=== PATIENT | female | born 1970 | race Caucasian/White ===

== ENCOUNTER 2018-06-07 20:29 | Emergency (ER) | payer OTHER ==
[~2018-06-07] VITALS: Ht 162.6 cm; Wt 108.9 kg
[~2018-06-07 20:29] MED LIST: ALBIPROI INH; ALBU90OI INH; ALBU90OI6 INH; ALBU90OI61 INH; AMOCLA875 PO; AMOX500 PO; ANTOXYBENA OT; ARIP10 PO; AZIT250 PO; Adipex-P37.5 MG PO; Ativan1 MG PO; BUPR150T2 PO; CIPR500 PO; CODGUAEL PO; CYCL10; CYCL10 PO; DEXT30SU PO; DIAZ10; DIAZ10 PO; DIAZ2; DIAZ5 PO; DIPATR PO; DIPH50 PO; DOCU100 PO; DOXY100 PO; ESOM20 PO; FAMO20 PO; FLUO20 PO; FLUSAL2505 IH; Flagyl500 MG PO; GUAI600T33 PO; HYDACE10B PO; HYDACE5 PO; HYDACE7.5; HYDACE7.5 PO; HYDGUAL120 PO; HYDHCL25 PO; HYDPAM25 PO; HYDPAM50; HYDPAM50 PO; HYDR1TAB94 PO; HYDRA50; HYDROXYZINE; IBUP600 PO; IBUP800 PO; LEVFLO500 PO; LEVO750 PO; LORA1 PO; LORA2 PO; MECL25 PO; METO10 PO; NAPR500; NAPR500 PO; NAPR550 PO; NEOCOLOTSU OT; Naprosyn500 MG PO; OMEP20ER PO; ONDA4 PO; ONDA4ODT MM; ONDA8ODT MM; OXYACE5T PO; Omeprazole20 M1; PANT20 PO; PERM5TC TOP; PERP4 PO; PERP8 PO; POTCHL20ER PO; PRED20 PO; PROACE100 PO; PROG100 PO; PROM25 PO; Phenergan Vc-C120 ML PO; Prednisone20 MG PO; Prilosec Otc20 MG PO; RANI150 PO; RXCYCL10 PO; RXDIPATR PO; RXHYDACE PO; RXLORA1 PO; RXNAPNA550 PO; RXONDA4ODT MM; RXOXYACE PO; SULTRIDS PO; VENL150ER PO; VENL25; VENL75; VENL75 PO; VENL75ER; VENL75ER PO; VENLAFAXINE 225 MG; Zithromax250 MG PO
== END 2018-06-07 21:38 | disposition left against medical advice (07) ==
LOC: ER 20:29
DX: Z53.21 Procedure and treatment not carried out due to patient leaving prior to being seen by health care provider (principal)

== ENCOUNTER → 2018-10-19 | Outpatient (CLI) | payer OTHER ==
[~2018-10-19] MED LIST changes: +ALBU2.5V5 NEB; +DULERA 200 MCG/13 GM INH; +LOSA25 PO; +METO25 PO; +MIRALAX17 GM PO; +NICO21TP TOP; +PROBIOTIC1 EACH PO; +Prozac40 MG PO; +Tylenol325 MG PO
[2018-10-19 13:50] LABS: Alanine Aminotransfer (ALT/SGP 39 U/L (12-78); Albumin, Blood 3.9 g/dL (3.4-5.0); Albumin/Globulin Ratio 0.9 (0.8-1.8); Alk Phos 117 U/L (40-126); Anion Gap 10 mmol/L (6-16); Aspartate Aminotrans (AST/SGOT 20 U/L (12-37); Bilirubin, Total 0.4 mg/dL (0.1-1.0); Blood Urea Nitrogen 17 mg/dL (8-24); Bun/Creatinine Ratio 19.1 (12.0-20.0); CO2, Blood 27 mmol/L (21-32); Calcium, Blood 9.3 mg/dL (8.5-10.1); Chloride, Blood 102 mmol/L (98-108); Creatinine, Blood 0.89 mg/dL (0.40-1.00); Globulin, Blood 4.3 g/dL (2.2-4.0); Glomerular Filtration Rate >60 (60-); Glucose, Blood 88 mg/dL (70-99); Potassium, Blood 3.8 mmol/L (3.5-5.5); Sodium, Blood 139 mmol/L (136-145); Total Protein, Blood 8.2 g/dL (6.4-8.2)
[2018-10-19 13:53] LABS: BASOPHILS ABSOLUTE AUTO 0.06 K/mm3 (0.00-0.23); BASOPHILS PERCENT AUTO 1 % (0-2); EOSINOPHILS ABSOLUTE AUTO 0.11 K/mm3 (0.00-0.68); EOSINOPHILS PERCENT AUTO 1 % (0-6); Hematocrit 37.9 % (33.0-51.0); Hemoglobin 12.5 g/dL (11.5-16.0); IMMATURE GRAN ABSOLUTE AUTO 0.08 K/mm3 (0.00-0.10); IMMATURE GRAN PERCENT AUTO 1 % (0-1); LYMPHOCYTES ABSOLUTE AUTO 2.35 K/mm3 (0.84-5.20); LYMPHOCYTES PERCENT AUTO 29 % (21-46); MONOCYTES ABSOLUTE AUTO 0.61 K/mm3 (0.16-1.47); MONOCYTES PERCENT AUTO 8 % (4-13); Mean Corpuscular HGB 28.3 pg (26.0-34.0); Mean Corpuscular Volume 86 fL (80-100); Mean Platelet Volume 10.1 fL (9.1-12.4); NEUTROPHILS ABSOLUTE AUTO 4.81 K/mm3 (1.96-9.15); NEUTROPHILS PERCENT AUTO 60 % (41-73); Platelet Count 315 K/mm3 (150-400); RDW Coefficient Variation 14.9 % (11.7-14.2); Red Blood Cell Count 4.41 M/mm3 (3.80-5.20); White Blood Cell Count 8.02 K/mm3 (4.00-11.30)
== END | disposition home or self-care (01) ==
LOC: LAB EV 13:26 → LAB SHORT 13:26
PROVIDERS: General Practice
DX: R09.1 Pleurisy (principal)
CPT/HCPCS: 80053; 85025; 85379

== ENCOUNTER 2018-10-27 13:27 | Observation (INO) | payer OTHER ==
[~2018-10-27] VITALS: Ht 162.6 cm; Wt 121.0 kg
[~2018-10-27 13:27] MED LIST changes: -ALBU2.5V5 NEB; -DULERA 200 MCG/13 GM INH; -LOSA25 PO; -METO25 PO; -MIRALAX17 GM PO; -NICO21TP TOP; -PROBIOTIC1 EACH PO; -Prozac40 MG PO; -Tylenol325 MG PO
[2018-10-27] MEDS ORDERED: Prozac40 MG PO (15:10)
[2018-10-27] MEDS ORDERED: VENL75ER PO (15:11)
[2018-10-27 16:10] LABS: Source, Urine Clean Catch
[2018-10-27 16:22] LABS: Appearance, Urine Clear (Clear); Bilirubin, Urine Neg (Neg); Blood, Urine Neg (Neg); Color, Urine Yellow (P-Yellow); Glucose Qualitative, Urine Neg (Neg); Ketones, Urine Neg (Neg); Leukocyte Esterase, Urine Neg (Neg); Nitrite, Urine Neg (Neg); Protein, Urine 1+ (Neg); Specific Gravity, Urine 1.015 (1.003-1.022); Urobilinogen, Urine NORM (Normal)
[2018-10-27 23:17] LABS: Adenovirus Not Detected (NOT DETECT); Bordetella pertussis Not Detected (NOT DETECT); Chlamydophila pneumoniae Not Detected (NOT DETECT); Coronavirus 229E Not Detected (NOT DETECT); Coronavirus HKU1 Not Detected (NOT DETECT); Coronavirus NL63 Not Detected (NOT DETECT); Coronavirus OC43 Not Detected (NOT DETECT); Human Metapneumovirus Not Detected (NOT DETECT); Human Rhinovirus/Enterovirus Not Detected (NOT DETECT); Influenza A/2009-H1 Not Detected (NOT DETECT); Influenza A/H1 Not Detected (NOT DETECT); Influenza A/H3 Not Detected (NOT DETECT); Influenza B Not Detected (NOT DETECT); Mycoplasma pneumoniae Not Detected (NOT DETECT); Parainfluenza Virus 1 Not Detected (NOT DETECT); Parainfluenza Virus 2 Not Detected (NOT DETECT); Parainfluenza Virus 3 Not Detected (NOT DETECT); Parainfluenza Virus 4 Not Detected (NOT DETECT); Respiratory Syncytial Virus Not Detected (NOT DETECT)
[2018-10-28 00:31] LABS: Influenza A Not Detected (NOT DETECT)
--- NOTE | 2018-10-28 03:22 | NUR ---
SHIFT SUMMARY 1954 RECEIVED PT TO 335 VIA W/C FROM ER. A&O, ABLE TO TX SELF TO BED. RECEIVED REPORT FROM SEBASTIAN LABOY. PT TO ER, SENT FROM [facility] FOR C/O COUGH AND SOB, AFTER FAILING OUTPT ABX TX. PER SEBASTIAN LBAOY, PT VERY AGGRESSIVE WITH STAFF IN ER. PT ADMITTED FOR COPD EXAC. HX OF SMOKING FOR 10 YRS. REFUTED COPD DX. REFUSED PREDNISONE IN ER. MORBIDLY OBESE WITH SOME HTN; BUT PT REPORTING THAT NEW. ENCOURAGED PT TO CONSIDER QUITING SMOKING. SPUTUM CX ORDERED AND PT AWARE, BUT HAS NOT HAD A PC OR BEEN COUGHING MUCH SINCE COMING TO . LUNGS T/O WITH INSP/EXP WHEEZES. BIOX WNL. CALLS APPROPRIATELY FOR ASSIST TO BTHRM AND RT TX'S NEEDED. DR ANDERSON NOTIFIED AFTER ADMISSION FOR HOME MEDICATIONS NOT ORDERED, PER PT REQUEST. PT'S DAUGHTER UP TO RM AFTER MN TO VISIT, WAKING PT. RT IN TO CK ON PT SEVERAL TIMES. NO ACUTE DISTRESS NOTED OR REPORTED. CALL LT IN REACH.
[2018-10-28 05:18] LABS: Hematocrit 32.7 % (33.0-51.0); Hemoglobin 10.7 g/dL (11.5-16.0); Mean Corpuscular HGB 28.1 pg (26.0-34.0); Mean Corpuscular HGB Conc 32.7 g/dL (31.5-36.5); Mean Corpuscular Volume 86 fL (80-100); Mean Platelet Volume 10.4 fL (9.1-12.4); Platelet Count 353 K/mm3 (150-400); RDW Coefficient Variation 14.8 % (11.7-14.2); RDW Standard Deviation 46.2 fL (35.1-46.3); Red Blood Cell Count 3.81 M/mm3 (3.80-5.20); White Blood Cell Count 20.65 K/mm3 (4.00-11.30)
[2018-10-28 05:47] LABS: Anion Gap 9 mmol/L (6-16); Blood Urea Nitrogen 33 mg/dL (8-24); Bun/Creatinine Ratio 40.2 (12.0-20.0); CO2, Blood 24 mmol/L (21-32); Calcium, Blood 8.4 mg/dL (8.5-10.1); Chloride, Blood 109 mmol/L (98-108); Creatinine, Blood 0.82 mg/dL (0.40-1.00); Glomerular Filtration Rate >60 (60-); Glucose, Blood 90 mg/dL (70-99); Potassium, Blood 3.7 mmol/L (3.5-5.5); Sodium, Blood 142 mmol/L (136-145)
--- NOTE | 2018-10-28 08:00 | NUR ---
PATIENT STS WANTS REVIEW OF HER LABS. RN GOES OVER THEM WITH PATIENT. PATIENT WANTS THEM COMPARED TO PRIOR AND WHEN PATIENT INFORMED THAT I DO NOT HAVE ANY PRIOR LABS STS HER WILL BRING THEM IN.
--- NOTE | 2018-10-28 08:45 | NUR ---
TALKED TO ABOUT ORDERING PATIENT PROZAC 80 MG P.O. OK TO ORDER.
--- NOTE | 2018-10-28 14:44 | NUR ---
TALKED TO ABOUT PATIENT WANTING CT CHEST TO CHECK FOR CHEMICAL INDUCED PNE. STS PATIENT HAD REQUESTED EARLIER AND THAT HE WANTS TO SEE PATIENT FIRST AND SHE MAY ORDER.
--- NOTE | 2018-10-28 15:11 | NUR ---
IN TO SEE PATIENT.
--- NOTE | 2018-10-28 18:31 | NUR ---
PATIENT ALERT AND ORIENTED. OUTSIDE W/S.O. X 2 TODAY W/STEADY GAIT. ANXIETY WITH REGARDS TO; BLD. PRESS, HEART RATE, DIFFERENT DIAGNOSIS'S, FLUID RETENTION, URINE OUTPUT. DR. KAUR IN TO SEE PATIENT AND RELATIVES AT THIS TIME. RN AND TIMBER SIZER OPERATOR IN ROOM MULTIPLE TIMES. HAVE REVIEWED ; LABS AND MEDS A FEW TIMES. TELE ON AND PER TECH 125 ST. IV SALINE LOCKED. WILL CONTINUE TO MONITOR.
--- NOTE | 2018-10-29 01:18 | NUR ---
pt stated that she was worried and needed newly presribed medication at start of shift, brought all appropriate medications when came to assess pt, discussed new medication, pt stated she was satisfied with what she was being given but declared that the dr had not done all that was promised. counsled her to discuss it with the dr in the am that there was still time for the dr to enter more orders, catered to various needs to get pt calmed down and resting quietly, family left, family member came up from [facility] during break and started requesting that aid supply a trapeze and egg crate, family then called the nurse and demanded those things without pt having asked for them, informed family that there was a protocol and that the cn would have to be involved in any reallocation of assets/resources, cn approved of both and tehy were placed on pt's bed, family came in and informed cn that pt was not being cared for when asked what was not being done listed no tylenol for fever, no egg crate and no trapeze. Still not satisfied even when shown that all three things had been done prior to his arrival, woke pt up and informed her that she was not being cared for. pt angrly argued that she had been fine and why had he woken her up. she then complained of a headache, seeing spots, n/v, fever (temp never over 100 degrees), demanded a new vitals machine because the battery was low on the one in her room, continued to check her bp frequently, started talking off topic on non related topics, RN asked charge nurse if it was appropriate to call a rr, cn agreed and the various staff members arrived, hospitalist was accused of not caring or being competent to dx pt due to her specialty, dr agreed to transfer pt to PCU so that she could receive more focused care, family agreed and started packing up belongings to move her down, pt declared she could not stand the light but that having her face covered caused her nausea, transfered with dry wash cloth in hand for pt cover face with if light bothered eyes, transfered to pcu without incident with assistance of cn
--- NOTE | 2018-10-29 03:22 | NUR ---
ASSUMED CARE PT ARRIVED TO UNIT APPROX. 0045 VIA BED. PT ABLE TO AMBULATE FROM ONE BED TO ANOTHER. PT ORIENTED TO ROOM, UNIT AND POLICIES. VITALS SIGNS STABLE. PT HAS MINIMAL EDEMA BILAT FEET. LUNG SOUNDS CLEAR IN TOP, DIM IN BASES. PT HEART RHYTHM SINUS TACHYCARDIA. UPON ARRIVAL TO UNIT PT HAD NAUSEA AND VOMITING. APPROX 50CC OF EMESIS WAS COLLECTED. UPON GETTING SITUATED IN BED PT REPORTED NAUSEA HAD RESOLVED. PT REPORTS PAIN AT THIS TIME PMD NOTIFIED AND ORDERED PRN PAIN MEDICATION WHICH WAS GIVEN PER EMAR. PT NAUSEA RESOLVED SHORTLY AFTER ARRIVED, ALTHOUGH RETURNED INTERMITTENTLY SINCE PRN NAUSEA MEDICATION GIVEN PER EMAR TO HELP WITH THIS. FAMILY AT BEDSIDE. EDUCATED AND REASSURED PT AND FAMILY, NEEDED. BED IN LOW POSITION, CALL LIGHT IN REACH AND PT DENIES ANY NEEDS AT THIS TIME.
[2018-10-29 05:30] LABS: BASOPHILS ABSOLUTE AUTO 0.07 K/mm3 (0.00-0.23); BASOPHILS PERCENT AUTO 0 % (0-2); EOSINOPHILS ABSOLUTE AUTO 0.01 K/mm3 (0.00-0.68); EOSINOPHILS PERCENT AUTO 0 % (0-6); Hematocrit 34.5 % (33.0-51.0); Hemoglobin 11.2 g/dL (11.5-16.0); IMMATURE GRAN ABSOLUTE AUTO 0.86 K/mm3 (0.00-0.10); IMMATURE GRAN PERCENT AUTO 5 % (0-1); LYMPHOCYTES ABSOLUTE AUTO 4.38 K/mm3 (0.84-5.20); LYMPHOCYTES PERCENT AUTO 23 % (21-46); MONOCYTES ABSOLUTE AUTO 1.12 K/mm3 (0.16-1.47); MONOCYTES PERCENT AUTO 6 % (4-13); Mean Corpuscular HGB 27.7 pg (26.0-34.0); Mean Corpuscular HGB Conc 32.5 g/dL (31.5-36.5); Mean Corpuscular Volume 85 fL (80-100); Mean Platelet Volume 10.3 fL (9.1-12.4); NEUTROPHILS ABSOLUTE AUTO 12.51 K/mm3 (1.96-9.15); NEUTROPHILS PERCENT AUTO 66 % (41-73); NRBC ABSOLUTE 0.02 K/mm3 (0.00-0.02); NRBC Auto 0.1 /100 WBC (0.0-0.2); Platelet Count 377 K/mm3 (150-400); RDW Coefficient Variation 14.8 % (11.7-14.2); RDW Standard Deviation 45.8 fL (35.1-46.3); Red Blood Cell Count 4.04 M/mm3 (3.80-5.20); White Blood Cell Count 18.95 K/mm3 (4.00-11.30)
[2018-10-29 05:51] LABS: Anion Gap 8 mmol/L (6-16); Blood Urea Nitrogen 21 mg/dL (8-24); Bun/Creatinine Ratio 28.3 (12.0-20.0); CO2, Blood 28 mmol/L (21-32); Calcium, Blood 8.9 mg/dL (8.5-10.1); Chloride, Blood 102 mmol/L (98-108); Creatinine, Blood 0.74 mg/dL (0.40-1.00); Glomerular Filtration Rate >60 (60-); Glucose, Blood 124 mg/dL (70-99); Potassium, Blood 3.8 mmol/L (3.5-5.5); Sodium, Blood 138 mmol/L (136-145)
--- NOTE | 2018-10-29 05:55 | NUR ---
SHIFT SUMMARY PT REMAINS A&OX4. AND DAUGHTERS AT BEDSIDE UPON ARRIVAL TO UNIT. DISCUSSED WITH FAMILY AND PT ABOUT PT CURRENT SITUATION, AND REASSURED THAT PT IS STABLE AND THAT WE WILL CONTINUE TO MONITOR PT CLOSELY. PRN PAIN MEDICATION AND PRN NAUSEA MEDICATION GIVEN PER EMAR. PT REPORTS THIS HELPING SOME. ASSISTED PT TO SITUATE AND GET COMFORTABLE, PT REPORTED BEING "EXTREMLY TIRED". IN HAVING CONVERSATION W/ PT, PT REPORTS HAVING QUIET THE HISTORY OF MENTAL ILLNESS INCLUDING ANXIETY, DEPRESSION AND "PTSD" LIKE SYMPTOMS. PT SAYS SHE IS AWARE SHE DOES NOT MANAGE THESE SYMPTOMS WELL AND STATES THAT SHE FELT THAT IT IS POSSIBLE THAT PART OF THE REASON FOR THE SOFTWARE CLERK WAS DUE TO INCREASED ANXIETY WHICH RESULTED IN WORSENING BREATHING, HEART RATE AND BLOOD PRESSURE. DISCUSSED WITH PT TECHNIQUES TO HELP MANAGE ANXIETY AND CALMING TECHNIQUES. PT AND FAMILY EXPRESSED CONCERNS FOR PT BLOOD PRESSURE AND HEART RATE AND REASSURED THAT STAFF IS MONITORING THIS. DAUGHTERS LEFT AND REMAINS AT BEDSIDE. PT ABLE TO GET SOME REST ONCE CONTROLLING NAUSEA, PAIN AND AFTER DAUGHTERS LEAVING. BED IN LOW POSITION, BED ALARM ON, CALL LIGHT IN REACH AND PT DENIES ANY NEEDS AT THIS TIME. WILL CONTINUE TO MONITOR UNTIL HANDOFF TO DAYSHIFT RN.
--- NOTE | 2018-10-29 08:16 | NUR ---
I have been called into the room 3 times this morning; The first time was for a new patient gown. The pt was diaphoretic, and she states she has been having sweats, reports that every night she has been waking up and has to change her nightgown because it is wet. I asked the pt if she still gets her period, and she states that it has stopped about 4 months ago, but states, "it's not because of that. I've been having high fevers and have been deathly ill for 3 weeks." Assured the pt that her temperature right now is normal. I was called into the room a second time because she was having "severe pain, all over, in my head, neck, and all over my body." The main complaint was her headache. I gave Toresemide to help bring down her slighly elevated blood pressure, which I suggested may be contributing to her headache. She is lying in bed, in a darkened room, with her at her side. She is now calling for medication for nausea, stating that the food is making her nauseated. She called me into the room also to give phone updates to her daughters. I explained that that would have to be done after morning care was given to patients, as the phone calls to family members were lower priority than patient care. She agreed with this and accepted my response.
--- NOTE | 2018-10-29 08:37 | NUR ---
Dr. Noriega is here to see the patient. The pt's came out of the room to tell me that the pt's headache is getting worse.
--- NOTE | 2018-10-29 09:24 | NUR ---
The pt is complaining that her headache is worse, now travelling down her neck and into her back. Declined ativan at this time. Tylenol given for pain. She c/o nausea, but had been given Zofran by abdias Garland RN. Gave meds with apple juice per pt request. Pt also stated that popscicles sounded good to her, so these were provided on ice for her to help alleviate her nausea.
--- NOTE | 2018-10-29 09:35 | NUR ---
The pt is calling again, states that her headache is worse. Tylenol has probably not had enough time to have any effect.
--- NOTE | 2018-10-29 11:17 | NUR ---
The pt called me into the room at 1045 to report that she was having worse headache. Her is at the bedside. She is lying in bed, on her right side, talking quite a lot. Overhead lights are on in the room, and she says that her headache is bad. She is requesting Fentanyl because "that is the only thing that helps me." Also states that she feels her blood pressure is high. Vital signs were taken, and blood pressure noted high; other vital signs were WNL. Medication given for anxiety and blood pressure at this time. The pt is asking about the results of the CT scan which was done yesterday. I explained that Dr. Wing who ordered the CT would be informing her of the results. The pt asked three times additionally what the results were, if I could tell her what they were, and how the CT looked. I explained again that Dr. Wing would be talking to her about the results. The pt then asked if the CT results were available for the doctor to read. I said that they were, but that the doctor would be discussing them with her, not the RN.
--- NOTE | 2018-10-29 12:36 | NUR ---
Blood pressure and pt condition rechecked at this time following administration of medications for anxiety and hypertension. She is lying in bed on her side, appears calm, non-anxious, and makes no mention of any pain or discomfort at this time. Her only complaint is that she does not feel like eating; but states that the 2 packages of saltine crackers did go down very well, and she would like some more at this time. Blood pressure rechecked and documented in electronic record. Her remains at the bedside. He said that he has been checking the pt's blood pressure because his daughters (presumably by telephone) wanted to know what the blood pressure was.
--- NOTE | 2018-10-29 15:10 | NUR ---
The pt was calling on her call light; requesting that her blood pressure be rechecked. Blood pressure was checked, and the pt reported that her headache was still persisting. Tylenol was given, as well as a warm blanket to her neck for relief. Pt's daughter asked when the last breathing treatment was given as "I heard 2 high pitched wheezes when I was feeding her tapioca pudding a little while ago." No active wheezing noted at this time. Encouraged the pt to use her incentive spirometer and cough once an hour to help expectorate secretions. The pt did so, and was incontinent of urine in the bed. The pt declined attends or pull-ups to prevent soiling of her linens. Diamond sat on the side of the bed to sit in the chair for bed linen change. She immediately c/o dizzyness and lay back down on the bed. LInen change was done with pt rolling side to side in the bed, after which she c/o severe headache and feeling feverish. Requested that her vital signs be again taken, although they had been verified just about 30 minutes prior. [facility]ation in [facility]. Afebrile. HOB elevated, cool compresses to her forehead and fan for relief of her feeling suddenly hot. Blood pressure was 151/95.
--- NOTE | 2018-10-29 15:54 | NUR ---
After receiving apresoline, tylenol and levaquin IVPB started, the pt had nausea, vomiting, c/o flushing and feeling like she couldn't breathe. Tylenol and levaquin the pt has received before without any adverse reaction, the family tells me. However, last night she recieved a number of medications, including apresoline, and the daughters both tell me that the patient had the same reaction which she just had now. Apresoline presumed to be the culprit. Medicated now for nausea/vomiting. She is resting on her left side, room darkened, at bedside, and no further nausea/vomiting.
--- NOTE | 2018-10-29 17:36 | NUR ---
The pt states that she is still feeling nauseated, and still having headache after the IV zofran. Emesis was pale olive green in color, about 300 cc this last time. Called ICU for sonosite-trained RN to place IV in large vein for phenergan order. Thept's current IV is 22g in the left hand. The pt's is at the bedside.
--- NOTE | 2018-10-29 20:30 | NUR ---
W/ DOOR SHUT AND CHANGE OF SHIFT REPORTING , NO CALL FOR STAFF INTO ROOM UNTIL NOW TO HAVE HELP W/ BSC.. NOW THERW IS NON STOP REPORTING, W/ ESCALATING VOICE AND REPORT OF ENTIRE DAY AND NO STAFF PERSON HAS ADDRESSED NEEDS AND THERE HAS BEEN MANY MEDS TRIED AND THERE HAS BEEN ONLY ADVERSE REACTIONS AND CONSTANT NAUSEA AND VOMITING W/ ALL MED ATTEMPTED , TO GIVE "RELIEF FROM THIS HORRIBLE ABREU , AND NOW IT IS SEVERE IN BACK AND IN BACK OF NECK.IT MUST BE FROM ALL THE COUGHING I DO AND I AM GETTING WORSE NO ONE IS HELPING ME. CALL MY DAUGHTERS . " PT YELLS TO . IS BEING VERY CALM AND TRYING TO CALM PT HE SAYS THE NURSE HAS TO REVIEW YOUR MEDS, AND TO GIVE THE NURSE TIME TO FIND OUT WHAT HAPPENED,..
--- NOTE | 2018-10-29 21:00 | NUR ---
COMPLETE ASSESSMENT AND ALLOWED TO EXPRESS CONCERNS AND CONCLUDED STAFF WILL TRY FLEXERIL AND ATIVAN ALONG W/ HER USUAL HS MED. PT WAS VERY ANGRY W/ THIS IDEA. REPORTS SHE WAS SO SICK TO HER STOMACH AND WAS VOMITING ..." DOESNT ANYONE GIVE YOU A GOOD REPORST ABOUT ME. ? " WHEN STAFF SAYS I WILL SAY YOU HAVE REFUSED THOSE MEDS , PT VERY ANGRY AND DOES NOT WANT THIS TO BE REPORTED LIKE THIS,..FENTENYL GIVEN AT THIS TIME AND VERY AGREEABLE TO THIS. WE REVIEWED THAT WHEN THE PHENERGAN IS DUE WE CAN GIVE THIS AND SHE CAN TRY THE PO MEDS. AND SHE DOES AGREE. NO ACUTE ISSUES NOTED. BP WITHIN PARAMETERS FOR NO PRN MED NEED. REFUSED TO USE I.S.
--- NOTE | 2018-10-29 22:00 | NUR ---
CONFIDENT IN HOW WELL PT HAS RESPONDED TO FENTENYL AND STATES SHE IS SLEEPING WELL AND HE WILL GO HOME.
[2018-10-30 05:25] LABS: BASOPHILS ABSOLUTE AUTO 0.07 K/mm3 (0.00-0.23); BASOPHILS PERCENT AUTO 0 % (0-2); EOSINOPHILS ABSOLUTE AUTO 0.02 K/mm3 (0.00-0.68); EOSINOPHILS PERCENT AUTO 0 % (0-6); Hematocrit 36.4 % (33.0-51.0); Hemoglobin 11.8 g/dL (11.5-16.0); IMMATURE GRAN ABSOLUTE AUTO 0.53 K/mm3 (0.00-0.10); IMMATURE GRAN PERCENT AUTO 3 % (0-1); LYMPHOCYTES ABSOLUTE AUTO 4.63 K/mm3 (0.84-5.20); LYMPHOCYTES PERCENT AUTO 27 % (21-46); MONOCYTES ABSOLUTE AUTO 1.18 K/mm3 (0.16-1.47); MONOCYTES PERCENT AUTO 7 % (4-13); Mean Corpuscular HGB 27.5 pg (26.0-34.0); Mean Corpuscular HGB Conc 32.4 g/dL (31.5-36.5); Mean Corpuscular Volume 85 fL (80-100); Mean Platelet Volume 10.3 fL (9.1-12.4); NEUTROPHILS ABSOLUTE AUTO 11.07 K/mm3 (1.96-9.15); NEUTROPHILS PERCENT AUTO 63 % (41-73); Platelet Count 406 K/mm3 (150-400); RDW Standard Deviation 46.3 fL (35.1-46.3); Red Blood Cell Count 4.29 M/mm3 (3.80-5.20)
--- NOTE | 2018-10-30 06:52 | NUR ---
SUMMARY. AWAKENED FOR VS OR LAB AND REPORTS VERY SEVERE SHARP PAIN AT BASE OF SKULL AT BACK OF NECK .. REPORT SAME ALL NOC W/ GOOD RELIEF W/ FENTENYL AND ADDITIONAL PAIN IS WHOLE BACK FROM COUGHING AND EXTREME FRONTAL ABREU. PHENERGAN AND FENTENYL GIVEN WHEN DUE SHE IS AWARE IT IS Q 4 HR. AND REFUSES ALL PO MEDS DUE TO UPSET STOMACH.
--- NOTE | 2018-10-30 11:18 | NUR ---
8038 In response to the pt's and pt's 's questions, I explained the plan of care today with regard to pain medication and antinausea meds. When I said that the Fentanyl was no longer available for pain relief, but other meds would be used, the patient became extremely angry, shouting obscenities and ordering me outside of the room. Her was present in the room at the time, as well as Martha Bond, the respiratory therapist.
--- NOTE | 2018-10-30 11:21 | NUR ---
7340 After leaving the pt's room an hour prior, I was in patient care with acutely ill patients for an hour. During that time, the pt used her call light and her to ask for her morning medications at least 4 times. I explained to her who approached me outside of another patient's room that I was in care with other patients, and when I was able to I would return to her room. She was cooperative with her care, complained that she had to wait so long for her medications. Expressed anxiety and fear about her medical condition, her IV site, her blood pressure, and her lung sounds. Asked questions about how long she would have to be on antibiotics, how long she would have to be in the hospital and when the doctor was going to order the headache medication for her. She about how much fluid she should be drinking, and how to increase her activity level without "overdoing" it. I answered her questions, which she expressed appreciation for. She apoligized for her behaviour earlier. Provided popscicle and saltine crackers for her which she requested. Declined any other needs such as toileting at that time.
--- NOTE | 2018-10-30 15:59 | NUR ---
Dr. Macias was here to see the patient. Patient's also in the room at the time, and was able to speak with the doctor. Dr. Macias left the room to speak with the , and the pt had further questions regarding the plan of care, which basically was because she was having difficulty recalling the details which Dr. Macias had just discussed with her. The plan of care was reinforced and repeated to the patient. The pt states that she understands the plan, and that she likes Dr. Macias.
--- NOTE | 2018-10-30 16:11 | NUR ---
The pt is calling for the Rn again.
--- NOTE | 2018-10-30 17:14 | NUR ---
The pt again asking what the plan of treatment is. States that the echocardiogram was just done. Asking when the dinner trays will arrive, and states that she hopes that she can eat something. Appears more calm, and has no current complaints of nausea or pain at this time.
--- NOTE | 2018-10-30 19:19 | NUR ---
summary After her inappropriate outburst this morning, the pt has been cooperative and pleasant for the rest of the day. She has a hard time recalling details I noticed. She asked me on three separate occasions to repeat what Dr. Macias had explained to her this afternoon, stating that he talked so fast she just couldn't recall it. Also gets confused about timing of past events, repeating her previous erroneous recollection of when things happened, even after being reminded of the correct timing. She is anxious about her care, anxious about her prognosis, and anxious about details of her treatment. Responded well to explainations of progress being made. Encouaraged OOB activity such as chair for meals, and using the bathroom instead of the bedside commode. She readily agreed to it this morning, but did not actually follow through. Stated that she was just "too weak". Also has not been using her incentive spirometer except when asked to use it in when staff are present. Appetite slowly improving; medicated once for nausea today. Encouraged intake of fluids. Bowel care was started.
--- NOTE | 2018-10-31 00:37 | NUR ---
ASSUMED CARE AT 1900. EDUCATION AND REVIEW OF LAB W/ PT AND SPOUSE W/ FIRST ASSESSMENT. AGREEABLE W/ LIMITED RESULTS OF TESTS AVAILABLE . AWARE THERE WOULD BE NO ECHO RESULTS AVAILABLE. AWARE TO INCREASE MOBILITY IF READY TO GO HOME . BP WNL AND PT VERY SURPRISED REVIEWED RATIONAL FOR THIS. ALL MEDS , DUE , ACCEPTED AND EVEN BOWEL CARE ASSIST PER REFUSED BEFORE. MORE ENGAGED AND EAGER TO LISTEN TO TEACHING PER STAFF. LATER ANOTHER STAFF PERSON CAME IN TO HELP PT AND PT WAS VERY ESCALATED IN SUDDEN REPRIMAND AND CORRECTION/DEMAND. SPOUSE TRIES TO CALM WITH REASON. NO ACUTE RESP ISSUES. LUNGS TIGHT AIR EXCHANGE AND SCATTERED INSP WZ .SOME COARSENESS CLEAR W/ COUGH. NON PRODUCTIVE NOW.
[2018-10-31 05:33] LABS: BASOPHILS ABSOLUTE AUTO 0.07 K/mm3 (0.00-0.23); BASOPHILS PERCENT AUTO 0 % (0-2); EOSINOPHILS ABSOLUTE AUTO 0.05 K/mm3 (0.00-0.68); EOSINOPHILS PERCENT AUTO 0 % (0-6); Hematocrit 37.1 % (33.0-51.0); IMMATURE GRAN ABSOLUTE AUTO 0.49 K/mm3 (0.00-0.10); IMMATURE GRAN PERCENT AUTO 3 % (0-1); LYMPHOCYTES ABSOLUTE AUTO 4.78 K/mm3 (0.84-5.20); LYMPHOCYTES PERCENT AUTO 29 % (21-46); MONOCYTES ABSOLUTE AUTO 1.01 K/mm3 (0.16-1.47); MONOCYTES PERCENT AUTO 6 % (4-13); Mean Corpuscular HGB 27.7 pg (26.0-34.0); Mean Corpuscular HGB Conc 32.3 g/dL (31.5-36.5); Mean Corpuscular Volume 86 fL (80-100); Mean Platelet Volume 10.1 fL (9.1-12.4); NEUTROPHILS ABSOLUTE AUTO 10.38 K/mm3 (1.96-9.15); NEUTROPHILS PERCENT AUTO 62 % (41-73); Platelet Count 413 K/mm3 (150-400); Red Blood Cell Count 4.33 M/mm3 (3.80-5.20); White Blood Cell Count 16.78 K/mm3 (4.00-11.30)
[2018-10-31 05:53] LABS: Anion Gap 9 mmol/L (6-16); Blood Urea Nitrogen 29 mg/dL (8-24); Bun/Creatinine Ratio 31.2 (12.0-20.0); CO2, Blood 28 mmol/L (21-32); Calcium, Blood 8.7 mg/dL (8.5-10.1); Chloride, Blood 98 mmol/L (98-108); Creatinine, Blood 0.93 mg/dL (0.40-1.00); Glomerular Filtration Rate >60 (60-); Glucose, Blood 116 mg/dL (70-99); Potassium, Blood 3.8 mmol/L (3.5-5.5); Sodium, Blood 135 mmol/L (136-145)
--- NOTE | 2018-10-31 06:35 | NUR ---
SHIFT SUMMARY . ALLOWED TO SLEEP ALL NOC. COMFORTABLE BREATHING WHEN CHECKED ON Q HOUR. SR AND NO ACUTE ISSUES REPORTED WHEN AWAKENED. PAIN AND NAUSEA NOT AN ISSUE. BUT VERY LITTLE EFFORT TO TRY TO TRY MORE FLUIDS,. POP SICLES BEFORE OFF TO SLEEP LAST NOC. SLEEPER GIVEN LAST NOC..UNABLE TO WEIGH DUE TO BED MALFUNCTION
--- NOTE | 2018-10-31 08:53 | NUR ---
Dr. Noriega was just here to see the patient. She verbalized no needs, and has no complaints offered of headache, nausea, lack of sleep, dyspnea or other discomfort. States that she slept a very long time last night. Noc shift RN reported that the patient slept all night long. Various excuses made for inactivity such as sitting in the chair for her meals and using the bedside commode instead of the bathroom, none of which were valid. She appears calm, without dyspnea of shortness of breath with the activity of self repositioning in bed, and bringing herself up to a seated position with use of the trapeze bar. Requires no assistance for these activities. Able to bring herself readily to a seated position on the side of the bed unassisted. Occasional non-productive cough noted. Lung sounds auscultated, and no wheezing was noted. Fine crackles noted upon inspiration throughout. Explained that per MD orders the Levaquin would be changed to oral today instead of IV.
--- NOTE | 2018-10-31 10:49 | NUR ---
Manfred called four times at his 's insistence within the past hour to notify staff that 1) his has walked into the bathroom and gotten back to bed without incident 2) they would like to know what the white blood cell count was 3) he has been taking her blood pressure every time she gets up to the bathroom or bedside commode and wanted us to see the results. I noted that the blood pressure cuff was inaccurately placed; the pt responded in an angry tone that "the CNAs will just have to come in here more often to check it for me" and yelled at me four times while I was responding to her 's questions to "Please check my blood pressure!" I told the patient quietly while I applied the cuff that "I would appreciate it if you would behave appropriately with patience and respectfulness" to which she yelled, "I HAVE BEEN BEING PATIENT! WHY DON'T YOU JUST CHECK MY BLOOD PRESSURE?" Pt was advised that it is not neccessary to check her blood pressure every time she gets up, and given the fact that she is anxious and upset, it will obviously be higher at this time. Blood pressure was checked and found to be 147/88. confided to me that he has multiple sclerosis and takes a lot of medication himself. He walks with a cane, and goes outside often and returns smelling strongly of cigarette smoke. He is quick to do whatever his demands.
--- NOTE | 2018-10-31 11:59 | NUR ---
Reinforced teaching that increasing mobility will improve her overall recovery. Noted to patient that SPO2 improved to 97% from 93% after the activity of getting up to bathroom, and then to chair, which stimulated some coughing. Production of scant amount of clear mucous with 3 strings of blood, each about the size of thread, 0.5 cm long, which was concerning to the patient. Encouraged her that mobility was helping her to deep breathe, cough, and clear out her lungs. She is concerned about her blood pressure. Ongoing anxiety unimproved. Her daughters are with her at this time, helping her with her meal, changing linens, and will help pt with shower after lunch, they state.
--- NOTE | 2018-10-31 12:45 | NUR ---
While finishing her shower, with the aid of her two daughters, the pt c/o feeling very dizzy like she was going to pass out. When I arrived in the room, the pt was lying in the bed, and blood pressure was 147 systolic. The pt said that that was a lot of activity for her. Daughter Gina told the pt that since it was the most activity she had done in 2 weeks, it was not surprising that it felt like a lot. Gina also told her mom that it is important to keep getting up and moving around or she wouldn't be getting any better. Assisted pt to lie more comfortably in the bed, HOB elevated 30 degrees. NO diaphoresis, no pallor, no cyanosis, no hypoxia. Pt states she is feeling better.
--- NOTE | 2018-10-31 16:15 | NUR ---
Telephone report given to Funmi Frausto RN at this time. Room 309 is clean; will transport the pt. to medical floor shortly.
--- NOTE | 2018-10-31 18:50 | NUR ---
SHIFT SUMMARY AVE ARRIVED FROM PCU AROUND 430 THIS AFTERNOON. COMPLAINED OF SOME PAIN IN HER BLE AND HER HEAD, TYLENOL AND ATIVAN GIVEN. PT VERY ANXIOUS AND PERSEVERATES. AT BEDSIDE. SBA TO BS, DECLINING TO WALK TO BR AT THIS TIME. TOLERATED DINNER DESPITE MILD NAUSEA. VSS. WCTM
--- NOTE | 2018-11-01 04:36 | NUR ---
SHIFT SUMMARY PT AWAKE AT START OF SHIFT, LYING FOWLERS AND WATCHING TV WITH AT BS. DURING BS REPORT, PT BEGAN ASKING MULTIPLE QUESTIONS ALL OF WHICH HAD BEEN ANS'D BEFORE OR COULD STILL NOT BE ANS'D. PT C/O LEGS SWELLING AND NOT BEING ABLE TO VOID LIKE SHE THINKS SHE SHOULD. HOWEVER, PT ALSO REPORTED THAT SHE HAD NOT BEEN DRINKING MUCH OF ANYTHING EITHER. PT ENCOURAGED TO DRINK HER WATER AND WE WOULD MONITOR HER FOR URINE OUTPUT. BEFORE THE END OF SHIFT REPORT, PT HAD GOTTEN UP TO BTHRM TO VOID. PT DID NOT WANT TO USE THE BSC WHERE URINE COULD BE MEASURED, BUT INSTEAD WENT IN TO THE TOILET. PT CONTINUED TO CALL FREQUENTLY FOR THE FIRST FEW HOURS OF THE SHIFT. PT'S ALSO OUT IN THE [place] TRACKING DOWN STAFF, EVERY FEW MINUTES WHILE HERE. PT VERY NEEDY, PUSHING CALL LT FOR ANY THING SHE CAN COME UP WITH. CALLED FOR HS MEDS MULTIPLE TIMES, EVEN THOUGH SHE HAD ALREADY GOTTEN EVERYTHING SHE POSSIBLE COULD FOR THE NIGHT. INSISTED ON A NICOTINE PATCH RIGHT AWAY AFTER START OF SHIFT, BUT HAD REFUSED ONE WHEN OFFERED BY DOCTOR WHEN IN . KRUPA CHURCH HISTORY TEACHER NOTIFIED AND NICOTINE PATCH ORDERED AND OBTAINED. PT FIXATES ON ONE THING AND THEN ANOTHER. PT C/O NAUSEA, THEN REPORTED NO BM SINCE 2 DAYS PRIOR TO ADMIT. BOWEL CARE OBTAINED AND GIVEN PER EMAR. IV SITE STARTED LEAKING AFTER FLUSHING AT START OF SHIFT LAST NIGHT. PT REFUSED TO HAVE ANOTHER ONE PUT IN. PT NO LONGER ON TELE AND DOES NOT HAVE IV MEDICATIONS AT THIS TIME. PT REQUESTING IV TO BE LEFT OUT. NO ACUTE CHANGES TO PRESENT THIS SHIFT. CALL LT IN REACH.
[2018-11-01 05:31] LABS: BASOPHILS ABSOLUTE AUTO 0.07 K/mm3 (0.00-0.23); BASOPHILS PERCENT AUTO 1 % (0-2); EOSINOPHILS PERCENT AUTO 1 % (0-6); Hematocrit 39.5 % (33.0-51.0); Hemoglobin 12.5 g/dL (11.5-16.0); IMMATURE GRAN ABSOLUTE AUTO 0.34 K/mm3 (0.00-0.10); IMMATURE GRAN PERCENT AUTO 2 % (0-1); LYMPHOCYTES ABSOLUTE AUTO 4.43 K/mm3 (0.84-5.20); LYMPHOCYTES PERCENT AUTO 30 % (21-46); MONOCYTES ABSOLUTE AUTO 0.98 K/mm3 (0.16-1.47); MONOCYTES PERCENT AUTO 7 % (4-13); Mean Corpuscular HGB 27.9 pg (26.0-34.0); Mean Corpuscular HGB Conc 31.6 g/dL (31.5-36.5); Mean Corpuscular Volume 88 fL (80-100); Mean Platelet Volume 10.4 fL (9.1-12.4); NEUTROPHILS ABSOLUTE AUTO 9.03 K/mm3 (1.96-9.15); NEUTROPHILS PERCENT AUTO 60 % (41-73); Platelet Count 398 K/mm3 (150-400); RDW Coefficient Variation 15.1 % (11.7-14.2); RDW Standard Deviation 47.7 fL (35.1-46.3); Red Blood Cell Count 4.48 M/mm3 (3.80-5.20); White Blood Cell Count 14.95 K/mm3 (4.00-11.30)
[2018-11-01 05:44] LABS: Anion Gap 8 mmol/L (6-16); Blood Urea Nitrogen 24 mg/dL (8-24); Bun/Creatinine Ratio 26.8 (12.0-20.0); CO2, Blood 27 mmol/L (21-32); Calcium, Blood 8.7 mg/dL (8.5-10.1); Chloride, Blood 100 mmol/L (98-108); Glomerular Filtration Rate >60 (60-); Glucose, Blood 118 mg/dL (70-99); Potassium, Blood 3.6 mmol/L (3.5-5.5); Sodium, Blood 135 mmol/L (136-145)
--- NOTE | 2018-11-01 19:08 | NUR ---
SHIFT SUMMARY: PT A&O; IRRITABLE; COOPERATIVE WITH CARE. MEDICATED FOR ANXIETY PER EMAR. PSYCH EVAL ORDERED BY HOSPITALIST (DR ENGEL) R/T ONGOING PSYCH ISSUES. ORAL ABX CONTINUING. REPORT GIVEN TO ONCOMING RN.
--- NOTE | 2018-11-02 03:42 | NUR ---
SHIFT SUMMARY PT SITTING UPRIGHT IN BED WITH R LEG OVER EOB, PT'S IN RM AT DURING SHIFT REPORT. PT CALLING FOR HS MEDS AT 1830 AND AGAIN AT 1845. PT THEN SENT OUT TO [place] TO OBTAIN STAFF FROM OTHER "S DURING BS REPORTING. PT VERY AGITATED TONIGHT. FIXATED ON MULTIPLE ISSUES, ONE AFTER THE OTHER. PER SHIFT REPORT, DOCTOR HAD ADJUSTED SOME OF PTS MEDICATIONS DURING THE DAY. PT C/O HTN AND WANTING VS TAKEN Q15 MINS. BP MEDS WELL HS MEDS TAKEN INTO PT, PER REQUEST. PT THEN REFUSING MEDS ORDERED. PT ALSO REFUSED PROZAC WELL, BECAUSE "IT KEEPS ME AWAKE". PT DEMANDS VARIOUS THINGS AND THEN REFUSES THEM WHEN SHE GETS HER WAY. PT IS VERY DIFFICULT TO PROVIDE CARE FOR. SHE DOES NOT WANT TO HELP HERSELF IN ANY WAY. SHE IS VERY DEMANDING AND IMPATIENT. PT HAS BEEN WETTING HERSELF ALL DAY AND NIGHT WHEN SHE DOESN'T GET HER WAY OR WHEN SHE WANTS ATTENTION. PT PRESSES CALL LT BUTTON FAST IT WILL RESET, FOR HOURS AT A TIME. LUNGS HAVE CONTINUED TO IMPROVE THE PAST COUPLE OF DAYS. PT DOES NOT SEEM SOB SHE WAS A FEW DAYS AGO. PT IS MORBIDLY OBESE AND NEEDS TO INCREASE HER MOBILITY, BUT WISHES TO STAY IN BED AND HAVE OTHERS DO EVERYTHING FOR HER. PT THEN COMPLAINS THAT SHE LACKS STRENGTH. PT ALSO C/O CONSTIPATION. ENCOURAGED AMBULATION AND PROVIDED BOWEL CARE. PT DECLINED AMBULATION AND PRUNE JUICE. WENT HOME FOR THE NIGHT AFTER HS MEDS GIVEN. APOLOGIZED FOR HIS 'S BEHAVIOR HE WAS LEAVING. PSYCH CONSULT ORDERED AND CONSULT REQUEST SENT FOR DR BERNSTEIN. PT APPEARS TO BE MEDICALLY STABLE, JUST HAS SOME DEFINITE PSYCH ISSUES. CALL LT IN REACH.
[2018-11-02] MEDS ORDERED: Tylenol325 MG PO (16:34)
[2018-11-02] MEDS ORDERED: GUAI600T33 PO (16:35)
[2018-11-02] MEDS ORDERED: ALBU2.5V5 NEB (16:36)
[2018-11-02] MEDS ORDERED: LEVO750 PO (16:37)
[2018-11-02] MEDS ORDERED: PROBIOTIC1 EACH PO (16:37)
[2018-11-02] MEDS ORDERED: LOSA25 PO (16:38)
[2018-11-02] MEDS ORDERED: METO25 PO (16:39)
[2018-11-02] MEDS ORDERED: DULERA 200 MCG/13 GM INH (16:40)
[2018-11-02] MEDS ORDERED: NICO21TP TOP (16:40)
[2018-11-02] MEDS ORDERED: MIRALAX17 GM PO (16:42)
--- NOTE | 2018-11-02 17:17 | NUR ---
DISCHARGE DISCHARGE INSTRUCTIONS, FOLLOW UP APPOINTMENT AND MEDICATIONS REVIEWED WITH PT AND HER . QUESTIONS/CONCERNS ANSWERED. PT AND SPOUSE VERBALLY INDICATED UNDERSTANDING OF ALL INSTRUCTIONS RECEIVED. FOLLOW UP APPOINTMENT FOR NOVEMBER 07 AT 1430 MADE AT [facility]. DATE, TIME AND ADDRESS GIVEN TO PT. PT ESCORTED OUT VIA W/C BY [facility]
== END 2018-11-02 17:09 | disposition home or self-care (01) ==
LOC: ER 13:27 → MEDS 13:28 → PCU 10-29 00:37 → MEDS 10-31 16:24
PROVIDERS: Internal Medicine Critical Care Medicine; Physician Assistant; ADMIT Internal Medicine
DX: R50.9 Fever, unspecified (principal); J44.1 Chronic obstructive pulmonary disease with (acute) exacerbation; R51 Headache; F32.9 Major depressive disorder, single episode, unspecified; I10 Essential (primary) hypertension; E66.9 Obesity, unspecified; R91.8 Other nonspecific abnormal finding of lung field; K21.9 Gastro-esophageal reflux disease without esophagitis; F17.210 Nicotine dependence, cigarettes, uncomplicated; R61 Generalized hyperhidrosis; Z88.8 Allergy status to other drugs, medicaments and biological substances; Z79.899 Other long term (current) drug therapy; Z68.42 Body mass index [BMI] 45.0-49.9, adult
CPT/HCPCS: 36415; 71046; 71250; 80048; 83605; 83880; 84145; 84443; 84484; 85025; 85027; 87070; 87205; 87449; 87486; 87581; 87633; 87798; 93005; 93010; 93306; 94640; 94760; 96361; 96365; 96366; 96372; 96374; 96375; 96376; 97110; 97116; 97162; 99285-25; G0378; J0360; J1650; J1885; J1956; J2405; J2550; J3010; J7030; J7120

== ENCOUNTER → 2018-10-27 | Outpatient (CLI) | payer OTHER ==
[2018-10-27 12:44] LABS: BASOPHILS ABSOLUTE AUTO 0.05 K/mm3 (0.00-0.23); BASOPHILS PERCENT AUTO 0 % (0-2); EOSINOPHILS ABSOLUTE AUTO 0.01 K/mm3 (0.00-0.68); EOSINOPHILS PERCENT AUTO 0 % (0-6); Hematocrit 34.6 % (33.0-51.0); Hemoglobin 11.4 g/dL (11.5-16.0); IMMATURE GRAN PERCENT AUTO 6 % (0-1); LYMPHOCYTES ABSOLUTE AUTO 2.83 K/mm3 (0.84-5.20); LYMPHOCYTES PERCENT AUTO 14 % (21-46); MONOCYTES ABSOLUTE AUTO 0.93 K/mm3 (0.16-1.47); MONOCYTES PERCENT AUTO 4 % (4-13); Mean Corpuscular HGB 27.7 pg (26.0-34.0); Mean Corpuscular HGB Conc 32.9 g/dL (31.5-36.5); Mean Corpuscular Volume 84 fL (80-100); Mean Platelet Volume 10.4 fL (9.1-12.4); NEUTROPHILS ABSOLUTE AUTO 15.98 K/mm3 (1.96-9.15); NEUTROPHILS PERCENT AUTO 76 % (41-73); Platelet Count 386 K/mm3 (150-400); RDW Coefficient Variation 14.8 % (11.7-14.2); RDW Standard Deviation 45.3 fL (35.1-46.3); Red Blood Cell Count 4.12 M/mm3 (3.80-5.20)
[2018-10-27 13:02] LABS: Anion Gap 10 mmol/L (6-16); Blood Urea Nitrogen 29 mg/dL (8-24); Bun/Creatinine Ratio 31.9 (12.0-20.0); CO2, Blood 27 mmol/L (21-32); Calcium, Blood 9.5 mg/dL (8.5-10.1); Chloride, Blood 102 mmol/L (98-108); Creatinine, Blood 0.91 mg/dL (0.40-1.00); Glomerular Filtration Rate >60 (60-); Glucose, Blood 130 mg/dL (70-99); Potassium, Blood 4.2 mmol/L (3.5-5.5); Sodium, Blood 139 mmol/L (136-145)
[2018-10-27 13:03] LABS: Troponin I <0.015 ng/mL (0.000-0.040)
== END | disposition home or self-care (01) ==
LOC: LAB SHORT 12:39 → LAB EV 12:39
PROVIDERS: Physician Assistant Surgical
DX: R07.9 Chest pain, unspecified (principal)
CPT/HCPCS: 80048; 83880; 84484; 85025

== ENCOUNTER → 2018-12-30 | Outpatient (CLI) | payer OTHER ==
[~2018-12-30] MED LIST changes: +ALBU2.5V5 NEB; +DULERA 200 MCG/13 GM INH; +LOSA25 PO; +METO25 PO; +MIRALAX17 GM PO; +NICO21TP TOP; +PROBIOTIC1 EACH PO; +Prozac40 MG PO; +Tylenol325 MG PO
[2018-12-30 14:40] LABS: Microalbumin, Urine Quant. <5.000 mg/L (0.000-20.000); Protein, Urine Quantitative <5.0 mg/dL (0.0-11.9)
== END | disposition home or self-care (01) ==
LOC: LAB FUT 13:35
PROVIDERS: Internal Medicine Nephrology
DX: N18.2 Chronic kidney disease, stage 2 (mild) (principal); D63.1 Anemia in chronic kidney disease; N25.81 Secondary hyperparathyroidism of renal origin; E55.9 Vitamin D deficiency, unspecified; E78.00 Pure hypercholesterolemia, unspecified; R76.9 Abnormal immunological finding in serum, unspecified; R94.5 Abnormal results of liver function studies; G60.9 Hereditary and idiopathic neuropathy, unspecified
CPT/HCPCS: 81050; 82043; 82570; 84156

== ENCOUNTER 2019-02-23 10:47 | Day surgery (SDC) | payer OTHER ==
[~2019-02-23] VITALS: Ht 162.6 cm; Wt 114.2 kg
[~2019-02-23 10:47] MED LIST changes: +BIOTIN5000 MCG PO; +BUME1 PO; +CALC.25 PO; +LISI5 PO; +MOTION-TIME25 MG PO; +Norco 10-325 T1 EACH PO; +ONDA8 PO; +PANT40 PO; +POTCHL10ER PO
--- NOTE | 2019-02-23 11:12 | NUR ---
Ambulatory in Day SurgeryPatient states colon prep results clear. WT ON ARRIVAL, BR ON ARRIVAL, History, Chart, Medications and Allergies reviewed before start of procedure.Lungs clear UPPER, DIMINISHED BASES BILAT, LAST USED INHALERS YESTERDAY AM, NO OBSERVABLE RESP DISTRESS, NO C/O SENSATION OF DYSPNEA Patient confirms NPO status and agrees with scheduled surgery. Pre-Op teaching done. Pt verbalizes understanding.
--- NOTE | 2019-02-23 13:22 | NUR ---
02/23/19 1321 Perry García PATIENT DETERMINED TO BE ASA APPROPRIATE FOR PROPOFOL SEDATION PRIOR TO START OF PROCEDURE BY . 3-LEAD EKG REVIEWED WITH PHYSICIAN PRIOR TO START OF PROCEDURE.PATIENT CONFIRMS NPO STATUS AND AGREES WITH SCHEDULED PROCEDURE.History, Chart, Medications and Allergies reviewed before start of procedure.MONITOR INTACT WITH CONTINUOUS PULSE OXIMETRY AND INTERMITTENT BP.O2 VIA N/C INTACT THROUGHOUT SEDATION/PROCEDURE.Bite Block Placed
--- NOTE | 2019-02-23 14:47 | NUR ---
Patient up to Ambulate independently. Gait steady. Discharge instructions reviewed with patient. Patient verbalizes understanding. Copy given to patient to take home. Patient States Post-Procedure ride home has been arranged. Discharged via wheelchair to private car for ride home.
== END 2019-02-25 22:51 | disposition home or self-care (01) ==
LOC: ORSCMMR 10:47
PROVIDERS: Internal Medicine Gastroenterology
PROC: 0DBP8ZX Excision of Rectum, Via Natural or Artificial Opening Endoscopic, Diagnostic (ICD-10-PCS; principal; 2019-02-23 08:30)
PROC: 0DB58ZX Excision of Esophagus, Via Natural or Artificial Opening Endoscopic, Diagnostic (ICD-10-PCS; principal; 2019-02-23 08:30)
PROC: 0DB68ZX Excision of Stomach, Via Natural or Artificial Opening Endoscopic, Diagnostic (ICD-10-PCS; principal; 2019-02-23 08:30)
PROC: 0DB98ZX Excision of Duodenum, Via Natural or Artificial Opening Endoscopic, Diagnostic (ICD-10-PCS; principal; 2019-02-23 08:30)
DX: R10.32 Left lower quadrant pain (principal); R19.4 Change in bowel habit; R11.2 Nausea with vomiting, unspecified; K20.9 Esophagitis, unspecified; K62.89 Other specified diseases of anus and rectum; K29.80 Duodenitis without bleeding; F17.210 Nicotine dependence, cigarettes, uncomplicated; E66.01 Morbid (severe) obesity due to excess calories; Z68.41 Body mass index [BMI] 40.0-44.9, adult; I10 Essential (primary) hypertension; J45.909 Unspecified asthma, uncomplicated; Z79.899 Other long term (current) drug therapy
CPT/HCPCS: 88305; 88342; J2704; J7120

== ENCOUNTER → 2019-05-28 | Outpatient (CLI) | payer OTHER | END | disposition home or self-care (01) | LOC: LAB 10:23 → LAB SHORT 10:23 | DX: A04.72 Enterocolitis due to Clostridium difficile, not specified as recurrent (principal) | CPT/HCPCS: 87493 ==

== ENCOUNTER → 2019-07-23 | Outpatient (CLI) | payer OTHER ==
[2019-07-23 12:47] LABS: Protein, Urine Quantitative 6.5 mg/dL (0.0-11.9)
[2019-07-23 12:52] LABS: Creatinine Urine 82.2 mg/dL (27.00-270.00); Microalbumin, Urine Quant. 6.01 mg/L (0.000-20.000)
== END | disposition home or self-care (01) ==
LOC: LAB 10:11 → LAB SHORT 10:11
PROVIDERS: Internal Medicine Nephrology
DX: N18.3 Chronic kidney disease, stage 3 (moderate) (principal); D63.1 Anemia in chronic kidney disease; N25.81 Secondary hyperparathyroidism of renal origin; E78.00 Pure hypercholesterolemia, unspecified; E55.9 Vitamin D deficiency, unspecified; R76.9 Abnormal immunological finding in serum, unspecified; R94.5 Abnormal results of liver function studies; R94.6 Abnormal results of thyroid function studies
CPT/HCPCS: 81050; 82043; 82570; 84156

== ENCOUNTER → 2019-08-14 | Outpatient (CLI) | payer OTHER | END | disposition home or self-care (01) | LOC: LAB SHORT 18:18 → LAB 18:18 | DX: N39.0 Urinary tract infection, site not specified (principal) | CPT/HCPCS: 87086 ==

== ENCOUNTER → 2019-08-16 | Outpatient (CLI) | payer OTHER ==
[~2019-08-16] MED LIST changes: +ALDACTONE25 MG PO; +AMOCLA500 PO; +Bumetanide2 MG PO; +G TUSSIN AC LI473 ML PO; +LACT10SY PO; +MIDO5 PO; +MYRBETRIQ50 MG PO; +POTA10T PO; +PRED10 PO; +Prednisone10 MG; +THERA-D2000 UNIT PO
== END | disposition home or self-care (01) ==
LOC: LAB SHORT 16:41 → LAB 16:42 → EDSTATUS 08-17 12:47 → LAB 08-21 10:32
DX: N18.2 Chronic kidney disease, stage 2 (mild) (principal); D63.1 Anemia in chronic kidney disease; E87.6 Hypokalemia; R76.9 Abnormal immunological finding in serum, unspecified; R94.5 Abnormal results of liver function studies; R94.6 Abnormal results of thyroid function studies
CPT/HCPCS: 86335

== ENCOUNTER → 2019-08-21 | Outpatient (CLI) | payer OTHER ==
[~2019-08-21] MED LIST changes: -ALDACTONE25 MG PO; -AMOCLA500 PO; -Bumetanide2 MG PO; -G TUSSIN AC LI473 ML PO; -LACT10SY PO; -MIDO5 PO; -MYRBETRIQ50 MG PO; -POTA10T PO; -PRED10 PO; -Prednisone10 MG; -THERA-D2000 UNIT PO
[2019-08-22 06:23] LABS: Candida species (DNA Probe) Negative (NEGATIVE); G. vaginalis (DNA Probe) Negative (NEGATIVE); T. vaginalis (DNA Probe) Negative (NEGATIVE)
[2019-08-23 15:07] LABS: HPV 16 Negative (Negative); HPV 18 Negative (Negative); HPV OTHER HR TYPES Negative (Negative)
== END | disposition home or self-care (01) ==
LOC: LAB SHORT 12:20 → LAB 12:20
PROVIDERS: Obstetrics & Gynecology
DX: Z01.419 Encounter for gynecological examination (general) (routine) without abnormal findings (principal); N89.8 Other specified noninflammatory disorders of vagina
CPT/HCPCS: 87480; 87510; 87660

== ENCOUNTER → 2019-09-07 | Outpatient (CLI) | payer OTHER | END | disposition home or self-care (01) | LOC: OLS 11:52 → LAB SHORT 11:52 → LAB FUT 09-06 15:40 | DX: N18.2 Chronic kidney disease, stage 2 (mild) (principal); D63.1 Anemia in chronic kidney disease; R10.9 Unspecified abdominal pain; R94.5 Abnormal results of liver function studies | CPT/HCPCS: 87493 ==

== ENCOUNTER 2019-10-21 15:24 | Emergency (ER) | payer OTHER ==
[~2019-10-21] VITALS: Ht 162.6 cm; Wt 109.8 kg
[2019-10-21 15:51] LABS: BASOPHILS ABSOLUTE AUTO 0.05 K/mm3 (0.00-0.23); BASOPHILS PERCENT AUTO 0 % (0-2); EOSINOPHILS ABSOLUTE AUTO 0.04 K/mm3 (0.00-0.68); EOSINOPHILS PERCENT AUTO 0 % (0-6); Hematocrit 40.8 % (33.0-51.0); Hemoglobin 13.3 g/dL (11.5-16.0); IMMATURE GRAN PERCENT AUTO 1 % (0-1); LYMPHOCYTES PERCENT AUTO 13 % (21-46); MONOCYTES ABSOLUTE AUTO 0.88 K/mm3 (0.16-1.47); MONOCYTES PERCENT AUTO 5 % (4-13); Mean Corpuscular HGB 28.2 pg (26.0-34.0); Mean Corpuscular HGB Conc 32.6 g/dL (31.5-36.5); Mean Corpuscular Volume 86 fL (80-100); Mean Platelet Volume 10.4 fL (9.1-12.4); NEUTROPHILS ABSOLUTE AUTO 14.96 K/mm3 (1.96-9.15); NEUTROPHILS PERCENT AUTO 82 % (41-73); Platelet Count 322 K/mm3 (150-400); RDW Standard Deviation 48.1 fL (35.1-46.3); Red Blood Cell Count 4.72 M/mm3 (3.80-5.20); White Blood Cell Count 18.33 K/mm3 (4.00-11.30)
[2019-10-21 16:01] LABS: Influenza A Negative (NEGATIVE); Influenza B Negative (NEGATIVE)
[2019-10-21] MEDS ORDERED: ALDACTONE25 MG PO (16:03)
[2019-10-21] MEDS ORDERED: Bumetanide2 MG PO (16:17)
[2019-10-21] MEDS ORDERED: POTA10T PO ×2 (16:18→16:19)
[2019-10-21 16:21] LABS: Alanine Aminotransfer (ALT/SGP 25 U/L (12-78); Albumin, Blood 3.7 g/dL (3.4-5.0); Albumin/Globulin Ratio 0.8 (0.8-1.8); Alk Phos 147 U/L (50-136); Anion Gap 11 mmol/L (6-16); Aspartate Aminotrans (AST/SGOT 33 U/L (12-37); Bilirubin, Total 0.6 mg/dL (0.1-1.0); Blood Urea Nitrogen 14 mg/dL (8-24); Bun/Creatinine Ratio 15.8 (12.0-20.0); CO2, Blood 20 mmol/L (21-32); Calcium, Blood 8.9 mg/dL (8.5-10.1); Chloride, Blood 101 mmol/L (98-108); Creatinine, Blood 0.89 mg/dL (0.40-1.00); Globulin, Blood 4.8 g/dL (2.2-4.0); Glomerular Filtration Rate >60 (60-); Glucose, Blood 124 mg/dL (70-99); Sodium, Blood 132 mmol/L (136-145); Total Protein, Blood 8.5 g/dL (6.4-8.2)
[2019-10-21] MEDS ORDERED: MYRBETRIQ50 MG PO (16:21)
[2019-10-21] MEDS ORDERED: MIDO5 PO (16:22)
[2019-10-21] MEDS ORDERED: Adipex-P37.5 MG PO (16:29)
[2019-10-21] MEDS ORDERED: AMOCLA500 PO (16:31)
[2019-10-21] MEDS ORDERED: G TUSSIN AC LI473 ML PO (16:32)
[2019-10-21] MEDS ORDERED: GUAI600T33 PO (16:34)
[2019-10-21] MEDS ORDERED: THERA-D2000 UNIT PO (16:34)
[2019-10-21] MEDS ORDERED: Prednisone20 MG PO (17:36)
== END 2019-10-21 17:59 | disposition home or self-care (01) ==
LOC: ER 15:24
PROVIDERS: Physician Assistant
DX: J20.8 Acute bronchitis due to other specified organisms (principal); F32.9 Major depressive disorder, single episode, unspecified; F17.210 Nicotine dependence, cigarettes, uncomplicated; Z88.8 Allergy status to other drugs, medicaments and biological substances; Z79.899 Other long term (current) drug therapy
CPT/HCPCS: 36415; 71046; 80053; 83605; 85025; 87040; 87804; 94640; 99283-25; J7512

== ENCOUNTER 2019-10-23 16:58 | Emergency (ER) | payer OTHER ==
[~2019-10-23] VITALS: Ht 162.6 cm; Wt 111.1 kg
[~2019-10-23 16:58] MED LIST changes: +ALDACTONE25 MG PO; +AMOCLA500 PO; +Bumetanide2 MG PO; +G TUSSIN AC LI473 ML PO; +MIDO5 PO; +MYRBETRIQ50 MG PO; +POTA10T PO; +THERA-D2000 UNIT PO
[2019-10-23 19:11] LABS: BASOPHILS ABSOLUTE AUTO 0.02 K/mm3 (0.00-0.23); BASOPHILS PERCENT AUTO 0 % (0-2); EOSINOPHILS PERCENT AUTO 0 % (0-6); Hematocrit 37.3 % (33.0-51.0); Hemoglobin 12.2 g/dL (11.5-16.0); IMMATURE GRAN ABSOLUTE AUTO 0.12 K/mm3 (0.00-0.10); IMMATURE GRAN PERCENT AUTO 1 % (0-1); LYMPHOCYTES ABSOLUTE AUTO 2.43 K/mm3 (0.84-5.20); LYMPHOCYTES PERCENT AUTO 15 % (21-46); MONOCYTES ABSOLUTE AUTO 0.94 K/mm3 (0.16-1.47); MONOCYTES PERCENT AUTO 6 % (4-13); Mean Corpuscular HGB 28.3 pg (26.0-34.0); Mean Corpuscular HGB Conc 32.7 g/dL (31.5-36.5); Mean Corpuscular Volume 87 fL (80-100); Mean Platelet Volume 10.7 fL (9.1-12.4); NEUTROPHILS ABSOLUTE AUTO 13.25 K/mm3 (1.96-9.15); NEUTROPHILS PERCENT AUTO 79 % (41-73); Platelet Count 327 K/mm3 (150-400); RDW Coefficient Variation 15.1 % (11.7-14.2); RDW Standard Deviation 48.2 fL (35.1-46.3); Red Blood Cell Count 4.31 M/mm3 (3.80-5.20); White Blood Cell Count 16.76 K/mm3 (4.00-11.30)
[2019-10-23 19:31] LABS: Alanine Aminotransfer (ALT/SGP 19 U/L (12-78); Albumin, Blood 3.3 g/dL (3.4-5.0); Albumin/Globulin Ratio 0.7 (0.8-1.8); Alk Phos 123 U/L (50-136); Anion Gap 7 mmol/L (6-16); Aspartate Aminotrans (AST/SGOT 13 U/L (12-37); Bilirubin, Total 0.2 mg/dL (0.1-1.0); Blood Urea Nitrogen 21 mg/dL (8-24); Bun/Creatinine Ratio 24.3 (12.0-20.0); CO2, Blood 24 mmol/L (21-32); Calcium, Blood 9.1 mg/dL (8.5-10.1); Chloride, Blood 107 mmol/L (98-108); Creatinine, Blood 0.86 mg/dL (0.40-1.00); Globulin, Blood 4.8 g/dL (2.2-4.0); Glomerular Filtration Rate >60 (60-); Glucose, Blood 79 mg/dL (70-99); Potassium, Blood 4.3 mmol/L (3.5-5.5); Sodium, Blood 138 mmol/L (136-145); Total Protein, Blood 8.1 g/dL (6.4-8.2)
[2019-10-23] MEDS ORDERED: PRED10 PO (22:30)
== END 2019-10-23 23:32 | disposition home or self-care (01) ==
LOC: ER 16:58
PROVIDERS: Physician Assistant
DX: R05 Cough (principal); Z88.8 Allergy status to other drugs, medicaments and biological substances; Z79.899 Other long term (current) drug therapy; Z79.52 Long term (current) use of systemic steroids; F32.9 Major depressive disorder, single episode, unspecified; F17.200 Nicotine dependence, unspecified, uncomplicated
CPT/HCPCS: 36415; 71046; 80053; 85025; 94640; 96361; 96374; 99284-25; J1100; J7030

== ENCOUNTER 2019-10-24 19:59 | Emergency (ER) | payer OTHER ==
[~2019-10-24] VITALS: Ht 162.6 cm; Wt 108.9 kg
[~2019-10-24 19:59] MED LIST changes: +PRED10 PO
[2019-10-24 21:26] LABS: Anion Gap 8 mmol/L (6-16); Blood Urea Nitrogen 21 mg/dL (8-24); Bun/Creatinine Ratio 24.2 (12.0-20.0); CO2, Blood 25 mmol/L (21-32); Calcium, Blood 9.3 mg/dL (8.5-10.1); Chloride, Blood 107 mmol/L (98-108); Creatinine, Blood 0.87 mg/dL (0.40-1.00); Glomerular Filtration Rate >60 (60-); Glucose, Blood 156 mg/dL (70-99); Potassium, Blood 3.4 mmol/L (3.5-5.5); Sodium, Blood 140 mmol/L (136-145)
[2019-10-24 22:04] LABS: BASOPHILS ABSOLUTE AUTO 0.04 K/mm3 (0.00-0.23); BASOPHILS PERCENT AUTO 0 % (0-2); EOSINOPHILS PERCENT AUTO 0 % (0-6); Hematocrit 38.9 % (33.0-51.0); Hemoglobin 12.8 g/dL (11.5-16.0); IMMATURE GRAN ABSOLUTE AUTO 0.25 K/mm3 (0.00-0.10); IMMATURE GRAN PERCENT AUTO 1 % (0-1); LYMPHOCYTES ABSOLUTE AUTO 3.15 K/mm3 (0.84-5.20); LYMPHOCYTES PERCENT AUTO 16 % (21-46); MONOCYTES PERCENT AUTO 6 % (4-13); Mean Corpuscular HGB 28.3 pg (26.0-34.0); Mean Corpuscular HGB Conc 32.9 g/dL (31.5-36.5); Mean Corpuscular Volume 86 fL (80-100); Mean Platelet Volume 10.5 fL (9.1-12.4); NEUTROPHILS ABSOLUTE AUTO 14.68 K/mm3 (1.96-9.15); NEUTROPHILS PERCENT AUTO 76 % (41-73); Platelet Count 372 K/mm3 (150-400); RDW Coefficient Variation 14.9 % (11.7-14.2); RDW Standard Deviation 47.4 fL (35.1-46.3); Red Blood Cell Count 4.53 M/mm3 (3.80-5.20); White Blood Cell Count 19.32 K/mm3 (4.00-11.30)
[2019-10-24 23:44] LABS: Source, Urine Clean Catch
[2019-10-24 23:49] LABS: Bilirubin, Urine Neg (Neg); Blood, Urine Neg (Neg); Glucose Qualitative, Urine Neg (Neg); Ketones, Urine 1+ (Neg); Leukocyte Esterase, Urine Neg (Neg); Nitrite, Urine Neg (Neg); Protein, Urine 1+ (Neg); Specific Gravity, Urine 1.025 (1.003-1.022); Urobilinogen, Urine NORM (Normal)
[2019-10-24 23:52] LABS: Appearance, Urine Clear (Clear); Color, Urine Yellow (P-Yellow)
== END 2019-10-25 01:43 | disposition home or self-care (01) ==
LOC: ER 19:59
PROVIDERS: Physician Assistant
DX: R10.32 Left lower quadrant pain (principal); F32.9 Major depressive disorder, single episode, unspecified; F17.210 Nicotine dependence, cigarettes, uncomplicated; Z79.899 Other long term (current) drug therapy
CPT/HCPCS: 36415; 51702; 51798; 74176; 80048; 85025; 96361-59; 96374-59; 96375-59; 96376-59; 99284-25; J2405; J3010; J7030

== ENCOUNTER 2019-10-31 16:45 | Inpatient (IN) | payer OTHER ==
[~2019-10-31] VITALS: Ht 162.6 cm; Wt 110.7 kg
[2019-10-31 17:52] LABS: BASOPHILS ABSOLUTE AUTO 0.04 K/mm3 (0.00-0.23); BASOPHILS PERCENT AUTO 0 % (0-2); EOSINOPHILS ABSOLUTE AUTO 0.01 K/mm3 (0.00-0.68); EOSINOPHILS PERCENT AUTO 0 % (0-6); Hematocrit 43.9 % (33.0-51.0); Hemoglobin 14.5 g/dL (11.5-16.0); IMMATURE GRAN ABSOLUTE AUTO 0.29 K/mm3 (0.00-0.10); IMMATURE GRAN PERCENT AUTO 2 % (0-1); LYMPHOCYTES ABSOLUTE AUTO 2.25 K/mm3 (0.84-5.20); LYMPHOCYTES PERCENT AUTO 12 % (21-46); MONOCYTES ABSOLUTE AUTO 0.63 K/mm3 (0.16-1.47); MONOCYTES PERCENT AUTO 4 % (4-13); Mean Corpuscular HGB 28.3 pg (26.0-34.0); Mean Corpuscular Volume 86 fL (80-100); Mean Platelet Volume 10.1 fL (9.1-12.4); NEUTROPHILS ABSOLUTE AUTO 14.91 K/mm3 (1.96-9.15); NEUTROPHILS PERCENT AUTO 82 % (41-73); Platelet Count 505 K/mm3 (150-400); RDW Coefficient Variation 14.6 % (11.7-14.2); RDW Standard Deviation 46.5 fL (35.1-46.3); Red Blood Cell Count 5.13 M/mm3 (3.80-5.20); White Blood Cell Count 18.13 K/mm3 (4.00-11.30)
[2019-10-31 18:14] LABS: Alanine Aminotransfer (ALT/SGP 54 U/L (12-78); Albumin, Blood 3.7 g/dL (3.4-5.0); Albumin/Globulin Ratio 0.7 (0.8-1.8); Alk Phos 131 U/L (50-136); Anion Gap 10 mmol/L (6-16); Aspartate Aminotrans (AST/SGOT 19 U/L (12-37); Bilirubin, Total 0.3 mg/dL (0.1-1.0); Blood Urea Nitrogen 25 mg/dL (8-24); Bun/Creatinine Ratio 25.4 (12.0-20.0); CO2, Blood 25 mmol/L (21-32); Calcium, Blood 9.8 mg/dL (8.5-10.1); Chloride, Blood 101 mmol/L (98-108); Creatinine, Blood 0.98 mg/dL (0.40-1.00); Globulin, Blood 5.2 g/dL (2.2-4.0); Glomerular Filtration Rate >60 (60-); Glucose, Blood 83 mg/dL (70-99); Potassium, Blood 4.5 mmol/L (3.5-5.5); Sodium, Blood 136 mmol/L (136-145); Total Protein, Blood 8.9 g/dL (6.4-8.2)
[2019-10-31 18:26] LABS: Source, Urine Clean Catch
[2019-10-31 18:29] LABS: Bilirubin, Urine Neg (Neg); Blood, Urine Neg (Neg); Glucose Qualitative, Urine Neg (Neg); Ketones, Urine 1+ (Neg); Leukocyte Esterase, Urine 1+ (Neg); Nitrite, Urine Neg (Neg); Protein, Urine 1+ (Neg); Urobilinogen, Urine NORM (Normal)
[2019-10-31 18:45] LABS: Appearance, Urine Hazy (Clear); Color, Urine Yellow (P-Yellow)
[2019-10-31 18:47] LABS: Bacteria Mod /hpf; Red Blood Cells, Urine 0-2 /hpf (0-2); Squamous Epithelial Cells Many /hpf (Few)
[2019-10-31 20:18] LABS: Free Thyroxine 1.16 ng/dL (0.70-1.60); Troponin I <0.015 ng/mL (0.000-0.040)
[2019-10-31 20:27] LABS: Lactate Dehydrogenase (Ld),Bld 285 U/L (100-240); Triiodothyronine, Free 2.44 pg/mL (2.18-3.98)
[2019-11-01] MEDS ORDERED: VENL75ER PO (01:16)
--- NOTE | 2019-11-01 02:23 | NUR ---
PHYSICIAN COMMUNICATION CONTACTED THE [facility] ANALYST PHYSICIAN TO NOTIFY HIM THAT SHE WAS EXPERIENCING PAIN AT 8/10 AND THAT SHE WANTED A NICOTINE PATCH WHILE IN THE HOSPITAL. DR MILLER ORDERED FENTANYL 25-50 MCG IV Q4 HOURS PRN AND A 40 MG NICOTINE PATCH TO BE APPLIED DAILY.
[2019-11-01 03:36] LABS: Adenovirus Not Detected (NOT DETECT); Bordetella pertussis Not Detected (NOT DETECT); Chlamydophila pneumoniae Not Detected (NOT DETECT); Coronavirus 229E Not Detected (NOT DETECT); Coronavirus HKU1 Not Detected (NOT DETECT); Coronavirus NL63 Not Detected (NOT DETECT); Coronavirus OC43 Not Detected (NOT DETECT); Human Metapneumovirus Not Detected (NOT DETECT); Human Rhinovirus/Enterovirus Not Detected (NOT DETECT); Influenza A Not Detected (NOT DETECT); Influenza A/2009-H1 Not Detected (NOT DETECT); Influenza A/H1 Not Detected (NOT DETECT); Influenza A/H3 Not Detected (NOT DETECT); Influenza B Not Detected (NOT DETECT); Mycoplasma pneumoniae Not Detected (NOT DETECT); Parainfluenza Virus 1 Not Detected (NOT DETECT); Parainfluenza Virus 2 Not Detected (NOT DETECT); Parainfluenza Virus 3 Not Detected (NOT DETECT); Parainfluenza Virus 4 Not Detected (NOT DETECT); Respiratory Syncytial Virus Not Detected (NOT DETECT)
--- NOTE | 2019-11-01 05:25 | NUR ---
SHIFT SUMMARY PATIENT ARRIVED TO UNIT AT 0025. SHE WAS VERY ANXIOUS AND COMPLAINING OF PAIN IN HER NECK AND BACK. AFTER GOING THROUGH THE ADMISSION PROCESS THE PATIENT'S TOOK HER OUTSIDE FOR A WALK. PRN IV FENTANYL WAS ADMINISTERED FOR PAIN AND WAS EFFECTIVE AND PATIENT WAS ABLE TO CALM DOWN AND FALL ASLEEP. IV IN RIGHT HAND PATENT AND INFUSING WITH NORMAL SALINE AT 75 ML/HR. BED IN LOWEST POSITION WITH WHEELS LOCKED. CALL LIGHT AND BELONGINGS WITHIN REACH. REPORT GIVEN TO ONCOMING RN.
[2019-11-01 07:21] LABS: Hematocrit 39.2 % (33.0-51.0); Hemoglobin 12.6 g/dL (11.5-16.0); Mean Corpuscular HGB 27.8 pg (26.0-34.0); Mean Corpuscular HGB Conc 32.1 g/dL (31.5-36.5); Mean Corpuscular Volume 86 fL (80-100); Mean Platelet Volume 9.8 fL (9.1-12.4); Platelet Count 370 K/mm3 (150-400); RDW Coefficient Variation 14.7 % (11.7-14.2); RDW Standard Deviation 46.8 fL (35.1-46.3); Red Blood Cell Count 4.54 M/mm3 (3.80-5.20); White Blood Cell Count 20.23 K/mm3 (4.00-11.30)
[2019-11-01 07:42] LABS: Alanine Aminotransfer (ALT/SGP 39 U/L (12-78); Albumin, Blood 3.1 g/dL (3.4-5.0); Albumin/Globulin Ratio 0.7 (0.8-1.8); Alk Phos 107 U/L (50-136); Anion Gap 7 mmol/L (6-16); Aspartate Aminotrans (AST/SGOT 9 U/L (12-37); Bilirubin, Total 0.3 mg/dL (0.1-1.0); Blood Urea Nitrogen 26 mg/dL (8-24); Bun/Creatinine Ratio 30.6 (12.0-20.0); CO2, Blood 29 mmol/L (21-32); Chloride, Blood 103 mmol/L (98-108); Creatinine, Blood 0.85 mg/dL (0.40-1.00); Globulin, Blood 4.3 g/dL (2.2-4.0); Glomerular Filtration Rate >60 (60-); Glucose, Blood 87 mg/dL (70-99); Potassium, Blood 3.9 mmol/L (3.5-5.5); Sodium, Blood 139 mmol/L (136-145); Total Protein, Blood 7.4 g/dL (6.4-8.2)
[2019-11-01 09:44] LABS: Source, Urine Clean Catch
[2019-11-01 10:00] LABS: Appearance, Urine Clear (Clear); Bilirubin, Urine Neg (Neg); Blood, Urine Neg (Neg); Color, Urine Yellow (P-Yellow); Glucose Qualitative, Urine Neg (Neg); Ketones, Urine Neg (Neg); Leukocyte Esterase, Urine 1+ (Neg); Nitrite, Urine Neg (Neg); Protein, Urine Neg (Neg); Specific Gravity, Urine 1.025 (1.003-1.022); Urobilinogen, Urine NORM (Normal)
[2019-11-01 10:09] LABS: Red Blood Cells, Urine Not Seen /hpf (0-2); Squamous Epithelial Cells Many /hpf (Few); White Blood Cells, Urine 0-2 /hpf (0-5)
[2019-11-01 10:10] LABS: Bacteria Not Seen /hpf; Calcium Oxalate Crystals Many /hpf
[2019-11-01 10:11] LABS: Other Crystals Mod /hpf
--- NOTE | 2019-11-01 17:07 | NUR ---
PT IS A/OX3, MOSTLY COOPERATIVE, THE PT IS UP IND, THE PT GOES OUTSIDE TO SMOKE T/O THE DAY, THE PT NEEDS CONTINUOS EDUCATION ON HER LABS AND DIAGNOSIS, CAN BE DEMANDING AND ARGUMENTATIVE AT TIMES, PT APPEARS TO BE BREATHING EASILY ON RA, PT WAS MEDICATED FOR PAIN T/O THE DAY, PTS IS AT THE BEDSIDE, CALL LIGHT IN REACH, WILL CONTINUE TO MONITOR AND ASSESS FOR CHANGES
--- NOTE | 2019-11-01 18:24 | NUR ---
[facility] THE [facility] WAS DRAWN PER SNOWBLOWER MECHANIC, HYDROCORTISON WAS GIVEN AFTER THE DRAW, LAB LATER REPORTED THE THE SAMPLE HAD BEEN COMPRIMISED AND THROWN OUT DUE TO MIS HANDELING OF THE SAMPLE, A CALL WAS MADE TO DR. NEWBERRY A MESSAGE WAS LEFT
--- NOTE | 2019-11-02 05:02 | NUR ---
SHIFT SUMMARY PATIENT ALERT AND ORIENTED X 4. IS VERY ANXIOUS TO KNOW WHAT EXACTLY IS WRONG WITH HER. SHE REQUESTS THAT HER BE DIRECTED TO WITH ALL HER MEDICAL AND MEDICATION QUESTIONS HE IS THE ONE WHO HAS TAKEN ON THE ROLE OF CARING FOR THOSE MATTERS AND KNOWS MORE THAN SHE DOES. SHE ALSO WANTS TO STRESS THAT SHE GETS CONFUSED WITH THE QUESTIONS SOMETIMES AND IS UNSURE IF SHE ANSWERS QUESTIONS APPROPRIATELY. AFTER DISCUSSING THESE MATTERS WITH HER SHE WAS ABLE TO SETTLE DOWN AND SLEEP OVERNIGHT. IV PATENT AND FLUSHED. BED IN LOWEST POSITION WITH WHEELS LOCKED. CALL LIGHT WITHIN REACH. REPORT GIVEN TO ONCOMING RN.
[2019-11-02 08:08] LABS: COMPLEMENT C3, SERUM 170 mg/dL (82-167); COMPLEMENT C4, SERUM 24 mg/dL (14-44)
[2019-11-02 10:37] LABS: BASOPHILS ABSOLUTE AUTO 0.04 K/mm3 (0.00-0.23); BASOPHILS PERCENT AUTO 0 % (0-2); EOSINOPHILS ABSOLUTE AUTO 0.03 K/mm3 (0.00-0.68); EOSINOPHILS PERCENT AUTO 0 % (0-6); Hematocrit 40.3 % (33.0-51.0); Hemoglobin 12.6 g/dL (11.5-16.0); IMMATURE GRAN ABSOLUTE AUTO 0.09 K/mm3 (0.00-0.10); IMMATURE GRAN PERCENT AUTO 1 % (0-1); LYMPHOCYTES PERCENT AUTO 45 % (21-46); MONOCYTES ABSOLUTE AUTO 0.87 K/mm3 (0.16-1.47); MONOCYTES PERCENT AUTO 6 % (4-13); Mean Corpuscular HGB 27.8 pg (26.0-34.0); Mean Corpuscular HGB Conc 31.3 g/dL (31.5-36.5); Mean Platelet Volume 10.3 fL (9.1-12.4); NEUTROPHILS ABSOLUTE AUTO 6.45 K/mm3 (1.96-9.15); NEUTROPHILS PERCENT AUTO 48 % (41-73); Platelet Count 375 K/mm3 (150-400); RDW Coefficient Variation 15.1 % (11.7-14.2); RDW Standard Deviation 49.1 fL (35.1-46.3); Red Blood Cell Count 4.54 M/mm3 (3.80-5.20); White Blood Cell Count 13.58 K/mm3 (4.00-11.30)
[2019-11-02 11:01] LABS: Mean Corpuscular Volume 89 fL (80-100)
[2019-11-02 11:21] LABS: Antinuclear Antibody Screen Positive (Negative)
[2019-11-02 14:07] LABS: ANTI-DSDNA ANTIBODIES 1 IU/mL (0-9); RNP ANTIBODIES <0.2 AI (0.0-0.9); SJOGREN'S ANTI-SS-A <0.2 AI (0.0-0.9); SJOGREN'S ANTI-SS-B <0.2 AI (0.0-0.9); SMITH ANTIBODIES <0.2 AI (0.0-0.9)
--- NOTE | 2019-11-02 14:10 | NUR ---
SHIFT SUMMARY PT AWAKE DURING SHIFT REPORT, WITH IN AT BS. PT WANTING PAIN MEDICATION DURING SHIFT REPORT, BUT THEN GOT INTO W/C TO GO OUT TO K. PT THEN STATED, "I WILL BE BACK". PT IN AND OUT OF RM ALL DAY, EVERY FEW MINUTES, GOING OUT TO K. PCU [place] FREQUENTLY CALLING TO REPORT PT OFF MX. DR NEWBERRY NOTIFIED TO D/C TELE. PT VERY RUDE TO MULTIPLE STAFF ALL MORNING. PT BEING VERY NEEDY AND MANIPULATIVE. VERY DIFFICULT TO PLEASE. DR NEWBERRY TO TO SEE PT THIS AM, BUT PT FREQUENTLY INTERRUPTED AND WOULD NOT LISTEN TO DR PROVIDE UPDATE OR PLAN OF CARE. THEN PT WOULD ASK STAFF THE SAME QUESTION OVER AND OVER AGAIN. PT ALSO SELF MEDICATING AND PICKING AND CHOOSING WHICH MEDS SHE WANTED AND WHEN. COMPLAINED ABOUT VS BEING TAKEN AND THEN REQUESTED THEM Q30 MINS. CHELLE WELDER PIPE MAKING AND CM'S ALONG WITH DR NEWBERRY IN SEVERAL TIMES DURING THE DAY, ATTEMPTING TO PROVIDE INFORMATION AND ANS QUESTIONS. PT HAS BEEN VERY RUDE AND CURSING AT ALL STAFF CONSTANTLY CHANGING HISTORY INFORMATION. PT INFORMED OF BEING D/C'D SEVERAL HOURS AGO. DR NEWBERRY WAITING FOR REMAINING URINE CX RESULT. D/C ORDERS PLACED PT'S LABS HAVE IMPROVED AND WILL BE ABLE TO FINISH WITH PO OUT PT. PT WANTING IV FENTANYL FOR ABREU Q4 HRS AND THEN C/O BEING CONSTIPATED. BOWEL CARE GIVEN AND EXTRA BOWEL ORDERED AND GIVEN, AFTER INFORMING DR NEWBERRY. PT INSTRUCTED TO CONTINUE BOWEL CARE AT HOME, WHICH SHE REPORTED THAT SHE ALREADY HAS. INSTRUCTED HER TO TRY LACTULOSE WELL. PT REFUSING TO PROVIDE INFORMATION OR PARTICIPATE IN CARE. CHRG RN TO GO OVER D/C ORDERS WITH PT.
[2019-11-02] MEDS ORDERED: AMOCLA500 PO (14:29)
[2019-11-02] MEDS ORDERED: Prednisone10 MG (14:30)
[2019-11-02] MEDS ORDERED: LACT10SY PO (14:31)
--- NOTE | 2019-11-02 15:09 | NUR ---
DISCHARGE HOME: EDUCATION PROVIDED R/T NEW MEDICATIONS AND FOLLOW UP POST HOSPITAL STAY. PT INFORMED NEW MEDS SENT TO HER PHARMACY. IV REMOVED. PT WITH MANY QUESTIONS REGARDING HER HOSPITAL STAY, THIS RN ANSWERED TO THE BEST OF MY ABILITY. PT STATES SHE'S SATISFIED WITH EXPLANATION. IN ROOM TO WHEEL PT OUT, REFUSED STAFF ESCORT. DISCHARGED AT 1508 WITH PAPERWORK IN HAND.
[2019-11-05 13:43] LABS: ANA Pattern Centromere
== END 2019-11-02 15:08 | disposition home or self-care (01) | DRG 644 ==
LOC: ER 16:45 → MEDS 16:46 → ER 16:46 → MEDS 22:47
PROVIDERS: Emergency Medicine; Internal Medicine; Physician Assistant; ADMIT Internal Medicine
DX: E27.49 Other adrenocortical insufficiency (principal); N39.0 Urinary tract infection, site not specified; Z68.41 Body mass index [BMI] 40.0-44.9, adult; F33.8 Other recurrent depressive disorders; B95.2 Enterococcus as the cause of diseases classified elsewhere; K59.00 Constipation, unspecified; K21.9 Gastro-esophageal reflux disease without esophagitis; F43.10 Post-traumatic stress disorder, unspecified; I10 Essential (primary) hypertension; F17.210 Nicotine dependence, cigarettes, uncomplicated; E66.9 Obesity, unspecified; Z87.11 Personal history of peptic ulcer disease; Z79.52 Long term (current) use of systemic steroids; Z79.899 Other long term (current) drug therapy
CPT/HCPCS: 0099U; 36415; 71046; 80053; 80069; 80400; 81001; 82024; 82533; 83605; 83615; 83880; 84439; 84443; 84481; 84484; 85025; 85027; 85651; 86038; 86039; 86140; 86160; 86225; 86235; 87040; 87077; 87086; 87186; 93005; 93010; 94640; 94760; 97161; 97530; 99285-25; A9270; A9270-GY; J0696; J0834; J1650; J1720; J3010; J7030

== ENCOUNTER 2020-05-11 19:05 | Emergency (ER) | payer OTHER ==
[~2020-05-11] VITALS: Ht 162.6 cm; Wt 105.2 kg
[~2020-05-11 19:05] MED LIST changes: -BIOTIN5000 MCG PO; +DULERA 200 MCG-13 GM INH; -DULERA 200 MCG/13 GM INH; +LACT10SY PO; +MERIBIN5 MG PO; +Prednisone10 MG; +Prozac20 MG PO; -Prozac40 MG PO; -THERA-D2000 UNIT PO; +Vitamin D2000 UNIT PO
[2020-05-11 20:27] LABS: Alanine Aminotransfer (ALT/SGP 24 U/L (12-78); Albumin, Blood 3.6 g/dL (3.4-5.0); Albumin/Globulin Ratio 0.9 (0.8-1.8); Alk Phos 104 U/L (50-136); Anion Gap 6 mmol/L (6-16); Aspartate Aminotrans (AST/SGOT 25 U/L (12-37); Bilirubin, Total 0.4 mg/dL (0.1-1.0); Blood Urea Nitrogen 18 mg/dL (8-24); Bun/Creatinine Ratio 20.1 (12.0-20.0); CO2, Blood 29 mmol/L (21-32); Calcium, Blood 8.8 mg/dL (8.5-10.1); Chloride, Blood 103 mmol/L (98-108); Creatinine, Blood 0.89 mg/dL (0.40-1.00); Globulin, Blood 4.2 g/dL (2.2-4.0); Glomerular Filtration Rate >60 (60-); Glucose, Blood 94 mg/dL (70-99); Potassium, Blood 3.5 mmol/L (3.5-5.5); Sodium, Blood 138 mmol/L (136-145); Total Protein, Blood 7.8 g/dL (6.4-8.2); Troponin I <0.015 ng/mL (0.000-0.040)
[2020-05-11 20:52] LABS: BASOPHILS ABSOLUTE AUTO 0.06 K/mm3 (0.00-0.23); BASOPHILS PERCENT AUTO 0 % (0-2); EOSINOPHILS ABSOLUTE AUTO 0.06 K/mm3 (0.00-0.68); EOSINOPHILS PERCENT AUTO 0 % (0-6); Hematocrit 33.8 % (33.0-51.0); IMMATURE GRAN ABSOLUTE AUTO 0.05 K/mm3 (0.00-0.10); IMMATURE GRAN PERCENT AUTO 0 % (0-1); LYMPHOCYTES ABSOLUTE AUTO 3.76 K/mm3 (0.84-5.20); LYMPHOCYTES PERCENT AUTO 27 % (21-46); MONOCYTES ABSOLUTE AUTO 0.89 K/mm3 (0.16-1.47); MONOCYTES PERCENT AUTO 6 % (4-13); Mean Corpuscular HGB 28.5 pg (26.0-34.0); Mean Corpuscular HGB Conc 32.5 g/dL (31.5-36.5); Mean Corpuscular Volume 88 fL (80-100); Mean Platelet Volume 10.5 fL (9.1-12.4); NEUTROPHILS ABSOLUTE AUTO 9.25 K/mm3 (1.96-9.15); NEUTROPHILS PERCENT AUTO 66 % (41-73); Platelet Count 269 K/mm3 (150-400); RDW Coefficient Variation 15.1 % (11.7-14.2); RDW Standard Deviation 48.4 fL (35.1-46.3); Red Blood Cell Count 3.86 M/mm3 (3.80-5.20); White Blood Cell Count 14.07 K/mm3 (4.00-11.30)
[2020-05-11] MEDS ORDERED: Ativan1 MG PO (21:40)
[2020-06-03] MEDS ORDERED: POTA10T PO (19:28)
[2020-06-03] MEDS ORDERED: PREG75 PO (19:29)
[2020-06-05] MEDS ORDERED: DOCU100 PO (13:20)
[2020-06-05] MEDS ORDERED: Nicoderm Cq1 EAC1 TOP (13:20)
[2020-06-05] MEDS ORDERED: K-TAB ER20 ME1 PO (13:21)
[2020-06-05] MEDS ORDERED: SENN187 PO (13:21)
== END 2020-05-11 21:48 | disposition home or self-care (01) ==
LOC: ER 19:05
PROVIDERS: Emergency Medicine
DX: F41.9 Anxiety disorder, unspecified (principal); Z88.8 Allergy status to other drugs, medicaments and biological substances; Z79.899 Other long term (current) drug therapy; F32.9 Major depressive disorder, single episode, unspecified; J44.9 Chronic obstructive pulmonary disease, unspecified; F17.210 Nicotine dependence, cigarettes, uncomplicated
CPT/HCPCS: 71046; 80053; 84484; 85025; 93005; 93010; 96374; 99285-25; J1885; J2060

== ENCOUNTER 2020-06-13 15:08 | Emergency (ER) | payer OTHER ==
[~2020-06-13] VITALS: Ht 162.6 cm; Wt 106.6 kg
[~2020-06-13 15:08] MED LIST changes: +K-TAB ER20 ME1 PO; +Nicoderm Cq1 EAC1 TOP; +PREG75 PO; +SENN187 PO
[2020-06-13 16:22] LABS: BASOPHILS ABSOLUTE AUTO 0.06 K/mm3 (0.00-0.23); BASOPHILS PERCENT AUTO 1 % (0-2); EOSINOPHILS ABSOLUTE AUTO 0.08 K/mm3 (0.00-0.68); EOSINOPHILS PERCENT AUTO 1 % (0-6); Hematocrit 41.2 % (33.0-51.0); Hemoglobin 13.4 g/dL (11.5-16.0); IMMATURE GRAN ABSOLUTE AUTO 0.05 K/mm3 (0.00-0.10); IMMATURE GRAN PERCENT AUTO 0 % (0-1); LYMPHOCYTES ABSOLUTE AUTO 3.84 K/mm3 (0.84-5.20); LYMPHOCYTES PERCENT AUTO 34 % (21-46); MONOCYTES ABSOLUTE AUTO 0.69 K/mm3 (0.16-1.47); MONOCYTES PERCENT AUTO 6 % (4-13); Mean Corpuscular HGB 28.9 pg (26.0-34.0); Mean Corpuscular HGB Conc 32.5 g/dL (31.5-36.5); Mean Corpuscular Volume 89 fL (80-100); Mean Platelet Volume 10.4 fL (9.1-12.4); NEUTROPHILS ABSOLUTE AUTO 6.57 K/mm3 (1.96-9.15); NEUTROPHILS PERCENT AUTO 58 % (41-73); Platelet Count 319 K/mm3 (150-400); RDW Coefficient Variation 14.4 % (11.7-14.2); RDW Standard Deviation 46.5 fL (35.1-46.3); Red Blood Cell Count 4.63 M/mm3 (3.80-5.20); White Blood Cell Count 11.29 K/mm3 (4.00-11.30)
[2020-06-13 18:54] LABS: Source, Urine Clean Catch
[2020-06-13 18:57] LABS: Bilirubin, Urine Neg (Neg); Blood, Urine Neg (Neg); Glucose Qualitative, Urine Neg (Neg); Ketones, Urine Neg (Neg); Leukocyte Esterase, Urine Neg (Neg); Nitrite, Urine Neg (Neg); Protein, Urine Neg (Neg); Urobilinogen, Urine NORM (Normal)
[2020-06-13 19:03] LABS: Appearance, Urine Clear (Clear); Color, Urine Pale Yellow (P-Yellow)
[2020-06-13 20:05] LABS: Calcium, Ionized (POC) 1.04 mmol/L (1.10-1.46); Chloride (POC) 95 mmol/L (98-108); Glucose (ISTAT POC) 102 mg/dL (70-99); Hemoglobin (POC) 12.9 g/dL (12.0-16.0); Potassium (POC) 3.5 mmol/L (3.5-5.5); Sodium (POC) 137 mmol/L (135-148); Total CO2 (POC) 32 mmol/L (21-32)
[2020-06-13] MEDS ORDERED: Kristalose20 GM PO (20:43)
== END 2020-06-13 20:53 | disposition home or self-care (01) ==
LOC: ER 15:08
PROVIDERS: Emergency Medicine; Physician Assistant
DX: E87.6 Hypokalemia (principal); R07.9 Chest pain, unspecified; K59.00 Constipation, unspecified; F32.9 Major depressive disorder, single episode, unspecified; F17.210 Nicotine dependence, cigarettes, uncomplicated; Z88.8 Allergy status to other drugs, medicaments and biological substances; Z79.51 Long term (current) use of inhaled steroids; Z79.899 Other long term (current) drug therapy
CPT/HCPCS: 36415; 80047; 81003; 83880; 84484; 85014; 85025; 93005; 93010; 96374; 96375; 96376; 99285-25; A9270; J2405; J3010; J3480; J7030

== ENCOUNTER 2020-06-15 21:06 | Emergency (ER) | payer OTHER ==
[~2020-06-15] VITALS: Ht 162.6 cm; Wt 108.9 kg
[~2020-06-15 21:06] MED LIST changes: +Kristalose20 GM PO
[2020-06-15] MEDS ORDERED: PROM25 PO (21:32)
[2020-06-15] MEDS ORDERED: AMOX500 PO (21:33)
[2020-06-15] MEDS ORDERED: LORA1 PO (21:34)
[2020-06-15] MEDS ORDERED: MECL12.5 PO (21:37)
[2020-06-15] MEDS ORDERED: PANT20 PO (21:38)
[2020-06-15] MEDS ORDERED: Phentermine HCl15 MG PO (21:38)
[2020-06-15 21:56] LABS: BASOPHILS ABSOLUTE AUTO 0.07 K/mm3 (0.00-0.23); BASOPHILS PERCENT AUTO 1 % (0-2); EOSINOPHILS ABSOLUTE AUTO 0.11 K/mm3 (0.00-0.68); EOSINOPHILS PERCENT AUTO 1 % (0-6); Hematocrit 35.6 % (33.0-51.0); Hemoglobin 11.5 g/dL (11.5-16.0); Mean Corpuscular HGB 29.2 pg (26.0-34.0); Mean Corpuscular HGB Conc 32.3 g/dL (31.5-36.5); Mean Corpuscular Volume 90 fL (80-100); Mean Platelet Volume 10.4 fL (9.1-12.4); Platelet Count 282 K/mm3 (150-400); RDW Coefficient Variation 14.6 % (11.7-14.2); RDW Standard Deviation 48.5 fL (35.1-46.3); Red Blood Cell Count 3.94 M/mm3 (3.80-5.20)
[2020-06-15 22:04] LABS: IMMATURE GRAN ABSOLUTE AUTO 0.03 K/mm3 (0.00-0.10); IMMATURE GRAN PERCENT AUTO 0 % (0-1); LYMPHOCYTES ABSOLUTE AUTO 4.28 K/mm3 (0.84-5.20); LYMPHOCYTES PERCENT AUTO 41 % (21-46); MONOCYTES ABSOLUTE AUTO 0.73 K/mm3 (0.16-1.47); MONOCYTES PERCENT AUTO 7 % (4-13); NEUTROPHILS ABSOLUTE AUTO 5.28 K/mm3 (1.96-9.15); NEUTROPHILS PERCENT AUTO 50 % (41-73)
[2020-06-15 23:10] LABS: Calcium, Ionized (POC) 1.13 mmol/L (1.10-1.46); Chloride (POC) 99 mmol/L (98-108); Creatinine (POC) 0.8 mg/dL (0.6-1.0); Glucose (ISTAT POC) 100 mg/dL (70-99); Hemoglobin (POC) 11.9 g/dL (12.0-16.0); Potassium (POC) 3.4 mmol/L (3.5-5.5); Sodium (POC) 138 mmol/L (135-148); Total CO2 (POC) 29 mmol/L (21-32)
[2020-06-15 23:31] LABS: Alanine Aminotransfer (ALT/SGP 32 U/L (12-78); Albumin, Blood 3.4 g/dL (3.4-5.0); Albumin/Globulin Ratio 0.9 (0.8-1.8); Alk Phos 91 U/L (50-136); Anion Gap 6 mmol/L (6-16); Aspartate Aminotrans (AST/SGOT 23 U/L (12-37); Bilirubin, Total 0.3 mg/dL (0.1-1.0); Blood Urea Nitrogen 16 mg/dL (8-24); Bun/Creatinine Ratio 21.5 (12.0-20.0); CO2, Blood 30 mmol/L (21-32); Chloride, Blood 102 mmol/L (98-108); Creatinine, Blood 0.74 mg/dL (0.40-1.00); Globulin, Blood 3.9 g/dL (2.2-4.0); Glomerular Filtration Rate >60 (60-); Glucose, Blood 95 mg/dL (70-99); Magnesium, Blood 1.9 mg/dL (1.6-2.4); Potassium, Blood 3.1 mmol/L (3.5-5.5); Sodium, Blood 138 mmol/L (136-145); Total Protein, Blood 7.3 g/dL (6.4-8.2); Troponin I <0.015 ng/mL (0.000-0.040)
[2020-06-15 23:42] LABS: Source, Urine Clean Catch
[2020-06-15 23:44] LABS: Bilirubin, Urine Neg (Neg); Blood, Urine Neg (Neg); Glucose Qualitative, Urine Neg (Neg); Ketones, Urine Neg (Neg); Leukocyte Esterase, Urine Neg (Neg); Nitrite, Urine Neg (Neg); Protein, Urine Neg (Neg); Urobilinogen, Urine NORM (Normal)
[2020-06-15 23:49] LABS: Appearance, Urine Clear (Clear); Color, Urine Yellow (P-Yellow)
== END 2020-06-16 00:10 | disposition home or self-care (01) ==
LOC: ER 21:06
PROVIDERS: Emergency Medicine
DX: E87.6 Hypokalemia (principal); F41.9 Anxiety disorder, unspecified; F17.210 Nicotine dependence, cigarettes, uncomplicated; Z88.8 Allergy status to other drugs, medicaments and biological substances; Z79.899 Other long term (current) drug therapy
CPT/HCPCS: 36415; 51798; 80047; 80053; 81003; 83690; 83735; 83880; 84484; 85014; 85025; 93005; 93010; 99285-25; A9270

== ENCOUNTER 2020-06-17 18:25 | Emergency (ER) | payer OTHER ==
[~2020-06-17] VITALS: Ht 162.6 cm; Wt 106.6 kg
[~2020-06-17 18:25] MED LIST changes: +MECL12.5 PO; +Phentermine HCl15 MG PO
[2020-06-17 19:28] LABS: BASOPHILS ABSOLUTE AUTO 0.05 K/mm3 (0.00-0.23); BASOPHILS PERCENT AUTO 1 % (0-2); EOSINOPHILS ABSOLUTE AUTO 0.16 K/mm3 (0.00-0.68); EOSINOPHILS PERCENT AUTO 2 % (0-6); Hematocrit 36.9 % (33.0-51.0); IMMATURE GRAN ABSOLUTE AUTO 0.04 K/mm3 (0.00-0.10); IMMATURE GRAN PERCENT AUTO 0 % (0-1); LYMPHOCYTES ABSOLUTE AUTO 3.54 K/mm3 (0.84-5.20); LYMPHOCYTES PERCENT AUTO 33 % (21-46); MONOCYTES ABSOLUTE AUTO 0.63 K/mm3 (0.16-1.47); MONOCYTES PERCENT AUTO 6 % (4-13); Mean Corpuscular HGB 29.3 pg (26.0-34.0); Mean Corpuscular HGB Conc 32.5 g/dL (31.5-36.5); Mean Corpuscular Volume 90 fL (80-100); Mean Platelet Volume 10.5 fL (9.1-12.4); NEUTROPHILS ABSOLUTE AUTO 6.47 K/mm3 (1.96-9.15); NEUTROPHILS PERCENT AUTO 59 % (41-73); Platelet Count 294 K/mm3 (150-400); RDW Coefficient Variation 14.6 % (11.7-14.2); RDW Standard Deviation 48.4 fL (35.1-46.3); Red Blood Cell Count 4.09 M/mm3 (3.80-5.20); White Blood Cell Count 10.89 K/mm3 (4.00-11.30)
[2020-06-17 19:53] LABS: Alanine Aminotransfer (ALT/SGP 32 U/L (12-78); Albumin, Blood 3.6 g/dL (3.4-5.0); Albumin/Globulin Ratio 0.9 (0.8-1.8); Alk Phos 91 U/L (50-136); Anion Gap 5 mmol/L (6-16); Aspartate Aminotrans (AST/SGOT 16 U/L (12-37); Bilirubin, Total 0.2 mg/dL (0.1-1.0); Blood Urea Nitrogen 18 mg/dL (8-24); CO2, Blood 29 mmol/L (21-32); Calcium, Blood 8.9 mg/dL (8.5-10.1); Chloride, Blood 103 mmol/L (98-108); Creatinine, Blood 0.75 mg/dL (0.40-1.00); Glomerular Filtration Rate >60 (60-); Glucose, Blood 102 mg/dL (70-99); Potassium, Blood 3.5 mmol/L (3.5-5.5); Sodium, Blood 137 mmol/L (136-145); Total Protein, Blood 7.6 g/dL (6.4-8.2); Troponin I <0.015 ng/mL (0.000-0.040)
== END 2020-06-17 21:46 | disposition home or self-care (01) ==
LOC: ER 18:25
PROVIDERS: Emergency Medicine
DX: R51 Headache (principal); R20.0 Anesthesia of skin; R20.2 Paresthesia of skin; F32.3 Major depressive disorder, single episode, severe with psychotic features; F17.210 Nicotine dependence, cigarettes, uncomplicated; Z88.8 Allergy status to other drugs, medicaments and biological substances; Z88.0 Allergy status to penicillin; Z79.899 Other long term (current) drug therapy
CPT/HCPCS: 36415; 70450; 80053; 84484; 85025; 93005; 93010; 96374; 96375; 99284-25; J1170; J1200; J1630; J1885; J2550

== ENCOUNTER → 2020-07-15 | Outpatient (CLI) | payer OTHER | END | disposition home or self-care (01) | LOC: LAB SHORT 14:56 → PLD 14:56 | DX: R23.4 Changes in skin texture (principal) | CPT/HCPCS: 88305; 88312 ==

== ENCOUNTER → 2020-07-15 | Outpatient (CLI) | payer OTHER | END | disposition home or self-care (01) | LOC: LAB SHORT 14:40 → LAB 14:40 | DX: L03.113 Cellulitis of right upper limb (principal) | CPT/HCPCS: 87070; 87205 ==

== ENCOUNTER 2020-11-06 11:06 | Emergency (ER) | payer OTHER ==
[~2020-11-06] VITALS: Ht 162.6 cm; Wt 116.6 kg
[~2020-11-06 11:06] MED LIST changes: -MECL12.5 PO; +PROMETHAZINE12.5 M2 PO; -Prozac20 MG PO; +Venlafaxine HC100 MG PO
[2020-11-06] MEDS ORDERED: DOCU100 PO (11:37)
[2020-11-06] MEDS ORDERED: Norco 10-325 T1 EACH PO (11:37)
[2020-11-06] MEDS ORDERED: METO5 PO (11:37)
[2020-11-06] MEDS ORDERED: PREG50 PO (11:38)
[2020-11-06 12:11] LABS: Hematocrit 39.6 % (33.0-51.0); Hemoglobin 12.8 g/dL (11.5-16.0); Mean Corpuscular HGB 29.6 pg (26.0-34.0); Mean Corpuscular HGB Conc 32.3 g/dL (31.5-36.5); Mean Corpuscular Volume 92 fL (80-100); Mean Platelet Volume 10.3 fL (9.1-12.4); Platelet Count 348 K/mm3 (150-400); RDW Coefficient Variation 13.8 % (11.7-14.2); RDW Standard Deviation 47.3 fL (35.1-46.3); Red Blood Cell Count 4.32 M/mm3 (3.80-5.20); White Blood Cell Count 9.74 K/mm3 (4.00-11.30)
[2020-11-06] MEDS ORDERED: MECL25 PO (12:20)
[2020-11-06 12:29] LABS: Albumin, Blood 3.9 g/dL (3.4-5.0); Albumin/Globulin Ratio 0.8 (0.8-1.8); Bilirubin, Total 0.4 mg/dL (0.1-1.0); Bun/Creatinine Ratio 28.4 (12.0-20.0); Calcium, Blood 9.4 mg/dL (8.5-10.1); Creatinine, Blood 1.09 mg/dL (0.40-1.00); Globulin, Blood 4.6 g/dL (2.2-4.0); Potassium, Blood 3.8 mmol/L (3.5-5.5); Total Protein, Blood 8.5 g/dL (6.4-8.2)
[2020-11-06 12:39] LABS: BAND PERCENT MAN 1 % (0-8); BASOPHILS PERCENT MAN 0 % (0-2); EOSINOPHILS PERCENT MAN 0 % (0-6); LYMPHOCYTES ABSOLUTE MAN 4.09 K/mm3 (0.84-5.20); LYMPHOCYTES PERCENT MAN 42 % (21-46); MONOCYTES ABSOLUTE MAN 0.58 K/mm3 (0.16-1.47); MONOCYTES PERCENT MAN 6 % (4-13); NEUTROPHILS ABSOLUTE MAN 5.06 K/mm3 (1.96-9.15); SEG NEUTROPHILS PERCENT MAN 51 % (41-73); TOTAL CELLS COUNTED 100
[2020-11-06 12:43] LABS: Source, Urine Clean Catch
[2020-11-06 12:47] LABS: Appearance, Urine Clear (Clear); Bilirubin, Urine Neg (Neg); Blood, Urine Neg (Neg); Glucose Qualitative, Urine Neg (Neg); Ketones, Urine Neg (Neg); Leukocyte Esterase, Urine Neg (Neg); Nitrite, Urine Neg (Neg); Protein, Urine Neg (Neg); Specific Gravity, Urine 1.005 (1.003-1.022); Urobilinogen, Urine NORM (Normal)
[2020-11-06 12:54] LABS: Color, Urine Pale Yellow (P-Yellow)
[2020-11-06 13:03] LABS: Magnesium, Blood 1.8 mg/dL (1.6-2.4); Phosphorus, Blood 2.8 mg/dL (2.5-4.9); Troponin I <0.015 ng/mL (0.000-0.040)
[2020-11-06] MEDS ORDERED: POTCHL20ER PO (13:15)
[2020-11-06] MEDS ORDERED: SPIR50 PO (13:17)
[2020-11-06] MEDS ORDERED: Prozac20 MG PO (13:18)
[2020-11-06] MEDS ORDERED: CYCL10 PO (13:18)
[2020-11-06] MEDS ORDERED: Hydroxyzine HCl50 MG PO (13:19)
[2020-11-06] MEDS ORDERED: LORAZEPAM0.5 MG PO (13:19)
[2020-11-06] MEDS ORDERED: Adipex-P37.5 M1 PO (13:20)
[2020-11-06] MEDS ORDERED: Bumetanide2 MG PO (13:20)
[2020-11-06] MEDS ORDERED: CALC.25 PO (13:21)
[2020-11-06] MEDS ORDERED: MIDO5 PO (13:21)
[2020-11-06] MEDS ORDERED: LOSA25 PO (13:22)
[2020-11-06] MEDS ORDERED: BIOTIN5 MG PO (13:23)
[2020-11-06] MEDS ORDERED: Vitamin B-650 MG PO (13:23)
[2020-11-06] MEDS ORDERED: FISH OIL 1,2001 EAC7 PO (13:23)
[2020-11-06] MEDS ORDERED: VITAMIN D31000 UNI1 PO (13:24)
[2020-11-06] MEDS ORDERED: MYRBETRIQ50 MG PO (13:24)
[2020-11-06] MEDS ORDERED: LEVOFLOXACIN250 M1 PO (13:25)
== END 2020-11-06 14:19 | disposition home or self-care (01) ==
LOC: ER 11:06
PROVIDERS: Emergency Medicine
DX: R60.9 Edema, unspecified (principal); R53.1 Weakness; R06.02 Shortness of breath; R53.83 Other fatigue; R05 Cough; F17.210 Nicotine dependence, cigarettes, uncomplicated; Z79.899 Other long term (current) drug therapy; Z88.8 Allergy status to other drugs, medicaments and biological substances
CPT/HCPCS: 36415; 71046; 80053; 81003; 83690; 83735; 83880; 84100; 84484; 85025; 93005; 93010; 99285-25

== ENCOUNTER 2020-11-11 00:18 | Day surgery (SDC) | payer OTHER ==
[~2020-11-11 00:18] MED LIST changes: +Adipex-P37.5 M1 PO; +BIOTIN5 MG PO; +FISH OIL 1,2001 EAC7 PO; +Hydroxyzine HCl50 MG PO; +LEVOFLOXACIN250 M1 PO; +LORAZEPAM0.5 MG PO; +METO5 PO; +PREG50 PO; +Prozac20 MG PO; +SPIR50 PO; +VITAMIN D31000 UNI1 PO; +Vitamin B-650 MG PO
[2020-11-11] MEDS ORDERED: BUME2 PO (09:42)
[2020-11-11 10:00] LABS: Alanine Aminotransfer (ALT/SGP 28 U/L (12-78); Albumin, Blood 3.8 g/dL (3.4-5.0); Albumin/Globulin Ratio 0.9 (0.8-1.8); Alk Phos 86 U/L (50-136); Anion Gap 10 mmol/L (6-16); Aspartate Aminotrans (AST/SGOT 13 U/L (12-37); Bilirubin, Direct <0.1 mg/dL (0.0-0.3); Bilirubin, Indirect Unable to Calculate mg/dL (0.1-0.7); Bilirubin, Total 0.4 mg/dL (0.1-1.0); Blood Urea Nitrogen 40 mg/dL (8-24); Bun/Creatinine Ratio 26.8 (12.0-20.0); CO2, Blood 28 mmol/L (21-32); Calcium, Blood 9.1 mg/dL (8.5-10.1); Chloride, Blood 99 mmol/L (98-108); Creatinine, Blood 1.49 mg/dL (0.40-1.00); Globulin, Blood 4.4 g/dL (2.2-4.0); Glomerular Filtration Rate 39 (60-); Glucose, Blood 95 mg/dL (70-99); Magnesium, Blood 2.2 mg/dL (1.6-2.4); Phosphorus, Blood 2.9 mg/dL (2.5-4.9); Potassium, Blood 4.2 mmol/L (3.5-5.5); Sodium, Blood 137 mmol/L (136-145); Total Protein, Blood 8.2 g/dL (6.4-8.2)
--- NOTE | 2020-11-11 11:43 | NUR ---
LOTS OF TEACHING DONE WITH PT AND . TALKED ABOUT ACTH STIM TEST. PT GIVEN READING MATERIAL ON ACTH STIM-TEST AND WHAT THE VALUES ARE ON THE LAB TESTS. PT SPOKE TO ME CONCERNING HER EXTENSIVE HEALTH HX. DISCUSSED HER CKD. ENCOURAGED PT NOT TO STOP TAKING HER MEDICATIONS WITHOUT SPEAKING WITH DR. WILLIAM.
== END 2020-11-11 10:05 | disposition home or self-care (01) ==
LOC: ATC 00:18
PROVIDERS: Internal Medicine Nephrology
DX: E27.40 Unspecified adrenocortical insufficiency (principal); N18.2 Chronic kidney disease, stage 2 (mild); D63.1 Anemia in chronic kidney disease
CPT/HCPCS: 36415; 80076; 80400; 82533; 83735; 84100; 85018; 96372; J0834

== ENCOUNTER → 2020-11-26 | Outpatient (CLI) | payer OTHER ==
[~2020-11-26] MED LIST changes: +BUME2 PO
[2020-11-26 17:00] LABS: Protein, Urine Quantitative 6.8 mg/dL (0.0-11.9)
[2020-11-26 17:03] LABS: Microalbumin, Urine Quant. <5.000 mg/L (0.000-20.000)
== END | disposition home or self-care (01) ==
LOC: LAB SHORT 07:20 → PLD 07:20 → LAB 07:20 → LAB FUT 11-04 16:40
PROVIDERS: Internal Medicine Nephrology
DX: N18.30 Chronic kidney disease, stage 3 unspecified (principal); D63.1 Anemia in chronic kidney disease; R76.9 Abnormal immunological finding in serum, unspecified; R94.5 Abnormal results of liver function studies; R94.6 Abnormal results of thyroid function studies; N25.81 Secondary hyperparathyroidism of renal origin; E55.9 Vitamin D deficiency, unspecified; E78.00 Pure hypercholesterolemia, unspecified
CPT/HCPCS: 81050; 82043; 82570; 84156

== ENCOUNTER → 2021-05-08 | Outpatient (CLI) | payer OTHER ==
[2021-05-08 12:11] LABS: Source, Urine Clean Catch
[2021-05-08 13:02] LABS: Bacteria Not Seen /hpf; Red Blood Cells, Urine Not Seen /hpf (0-2); Squamous Epithelial Cells Many /hpf (Few); White Blood Cells, Urine Rare /hpf (0-5)
== END | disposition home or self-care (01) ==
LOC: LAB 12:08 → LAB SHORT 12:08
PROVIDERS: Family Medicine
DX: R39.198 Other difficulties with micturition (principal)
CPT/HCPCS: 81015

== ENCOUNTER 2021-05-18 01:26 | Day surgery (SDC) | payer OTHER ==
[2021-05-18] MEDS ORDERED: Lasix80 MG PO (11:12)
--- NOTE | 2021-05-18 11:19 | NUR ---
TREATMENT RECORD FAXED TO DR BROWN.
[2021-06-20] MEDS ORDERED: SEROQUEL XR300 MG PO (12:24)
== END 2021-05-18 09:35 | disposition home or self-care (01) ==
LOC: ATC 01:26
DX: R39.198 Other difficulties with micturition (principal); I12.9 Hypertensive chronic kidney disease with stage 1 through stage 4 chronic kidney disease, or unspecified chronic kidney disease; N18.2 Chronic kidney disease, stage 2 (mild); F17.210 Nicotine dependence, cigarettes, uncomplicated; Z79.899 Other long term (current) drug therapy
CPT/HCPCS: 51798

== ENCOUNTER 2021-06-01 01:39 | Day surgery (SDC) | payer OTHER ==
[~2021-06-01 01:39] MED LIST changes: +Lasix80 MG PO
--- NOTE | 2021-06-01 16:40 | NUR ---
BLADDER SCAN RESULTS FAXED TO DR. BROWN.
[2021-06-20] MEDS ORDERED: SEROQUEL XR300 MG PO (12:24)
== END 2021-06-01 14:38 | disposition home or self-care (01) ==
LOC: ATC 01:39
DX: R39.198 Other difficulties with micturition (principal); I12.9 Hypertensive chronic kidney disease with stage 1 through stage 4 chronic kidney disease, or unspecified chronic kidney disease; N18.2 Chronic kidney disease, stage 2 (mild); N25.81 Secondary hyperparathyroidism of renal origin; F17.210 Nicotine dependence, cigarettes, uncomplicated
CPT/HCPCS: 51798

== ENCOUNTER 2021-06-02 14:45 | Observation (INO) | payer OTHER ==
[~2021-06-02] VITALS: Ht 162.6 cm; Wt 117.9 kg
[2021-06-02 16:09] LABS: Source, Urine Clean Catch
[2021-06-02 16:13] LABS: Appearance, Urine Clear (Clear); Bilirubin, Urine Neg (Neg); Blood, Urine Neg (Neg); Color, Urine Yellow (P-Yellow); Glucose Qualitative, Urine Neg (Neg); Ketones, Urine Neg (Neg); Leukocyte Esterase, Urine Neg (Neg); Nitrite, Urine Neg (Neg); Protein, Urine Neg (Neg); Specific Gravity, Urine 1.015 (1.003-1.022); Urobilinogen, Urine NORM (Normal)
[2021-06-02 16:27] LABS: U Amphetamine Screen DETECTED
[2021-06-02 16:28] LABS: U Barbituate Screen Not Detected; U Benzodiazapine Screen Not Detected; U Buprenorphine Screen Not Detected; U Cannabinoids Screen Not Detected; U Cocaine Screen Not Detected; U Methadone Screen Not Detected; U Methamphetamine Screen Not Detected; U Opiates Screen Not Detected; U Oxycodone Screen Not Detected; U Phencyclidine Screen Not Detected; U Propoxyphene Screen Not Detected
[2021-06-02 17:07] LABS: BASOPHILS ABSOLUTE AUTO 0.07 K/mm3 (0.00-0.23); BASOPHILS PERCENT AUTO 1 % (0-2); EOSINOPHILS ABSOLUTE AUTO 0.04 K/mm3 (0.00-0.68); EOSINOPHILS PERCENT AUTO 0 % (0-6); Hematocrit 37.8 % (33.0-51.0); Hemoglobin 12.9 g/dL (11.5-16.0); IMMATURE GRAN ABSOLUTE AUTO 0.05 K/mm3 (0.00-0.10); IMMATURE GRAN PERCENT AUTO 0 % (0-1); LYMPHOCYTES ABSOLUTE AUTO 3.57 K/mm3 (0.84-5.20); LYMPHOCYTES PERCENT AUTO 27 % (21-46); MONOCYTES ABSOLUTE AUTO 1.07 K/mm3 (0.16-1.47); MONOCYTES PERCENT AUTO 8 % (4-13); Mean Corpuscular HGB 30.3 pg (26.0-34.0); Mean Corpuscular HGB Conc 34.1 g/dL (31.5-36.5); Mean Corpuscular Volume 89 fL (80-100); Mean Platelet Volume 10.7 fL (9.1-12.4); NEUTROPHILS ABSOLUTE AUTO 8.69 K/mm3 (1.96-9.15); NEUTROPHILS PERCENT AUTO 64 % (41-73); Platelet Count 326 K/mm3 (150-400); RDW Coefficient Variation 13.5 % (11.7-14.2); RDW Standard Deviation 43.8 fL (35.1-46.3); Red Blood Cell Count 4.26 M/mm3 (3.80-5.20); White Blood Cell Count 13.49 K/mm3 (4.00-11.30)
[2021-06-02 17:24] LABS: Alanine Aminotransfer (ALT/SGP 49 U/L (12-78); Albumin, Blood 4.4 g/dL (3.4-5.0); Albumin/Globulin Ratio 1.1 (0.8-1.8); Alk Phos 101 U/L (50-136); Anion Gap 8 mmol/L (6-16); Aspartate Aminotrans (AST/SGOT 29 U/L (12-37); Bilirubin, Total 0.6 mg/dL (0.1-1.0); Blood Urea Nitrogen 19 mg/dL (8-24); CO2, Blood 27 mmol/L (21-32); Calcium, Blood 9.4 mg/dL (8.5-10.1); Chloride, Blood 101 mmol/L (98-108); Creatinine, Blood 1.19 mg/dL (0.40-1.00); Ethanol (Alcohol), Blood, Med <3 mg/dL; Glomerular Filtration Rate 48 (60-); Glucose, Blood 135 mg/dL (70-99); Potassium, Blood 2.9 mmol/L (3.5-5.5); Salicylate 3.7 mg/dL (2.8-20.0); Sodium, Blood 136 mmol/L (136-145); Total Protein, Blood 8.4 g/dL (6.4-8.2)
[2021-06-02 17:27] LABS: Acetaminophen, Random <2.0 ug/mL (10.0-30.0)
[2021-06-03 01:07] LABS: SARS-Cov-2 (COVID-19) PCR, MMC NEGATIVE (NEGATIVE)
[2021-06-03] MEDS ORDERED: LORA.5 PO (08:57)
[2021-06-03] MEDS ORDERED: BIOTIN1 MG PO (08:57)
[2021-06-03] MEDS ORDERED: ALBU90OI INH (08:57)
[2021-06-03] MEDS ORDERED: CYCL10 PO (08:58)
[2021-06-03] MEDS ORDERED: CALC.25 PO (08:58)
[2021-06-03] MEDS ORDERED: BUMETANIDE2 M3 PO (08:58)
[2021-06-03] MEDS ORDERED: Norco 10-325 T1 EACH PO (08:59)
[2021-06-03] MEDS ORDERED: VENL75ER PO (08:59)
[2021-06-03] MEDS ORDERED: Colace100 MG PO (08:59)
[2021-06-03] MEDS ORDERED: HYDPAM50 PO (09:00)
[2021-06-03] MEDS ORDERED: MECL25 PO (09:00)
[2021-06-03] MEDS ORDERED: K-Dur20 MEQ PO (09:01)
[2021-06-03] MEDS ORDERED: PREG75 PO (09:01)
[2021-06-03] MEDS ORDERED: SPIR25 PO (09:01)
[2021-06-03 17:55] LABS: Calcium, Ionized (POC) 1.16 mmol/L (1.10-1.46); Chloride (POC) 97 mmol/L (98-108); Glucose (ISTAT POC) 140 mg/dL (70-99); Hemoglobin (POC) 13.9 g/dL (12.0-16.0); Potassium (POC) 3.1 mmol/L (3.5-5.5); Sodium (POC) 139 mmol/L (135-148); Total CO2 (POC) 28 mmol/L (21-32)
[2021-06-04 08:47] LABS: Potassium, Blood 3.2 mmol/L (3.5-5.5); Thyroid Stimulating Hormone 0.394 uIU/mL (0.360-4.800)
[2021-06-20] MEDS ORDERED: SEROQUEL XR300 MG PO (12:24)
== END 2021-06-05 12:30 | disposition home or self-care (01) ==
LOC: ER 14:45 → EOR 14:46
PROVIDERS: Emergency Medicine; ADMIT Emergency Medicine
DX: F31.2 Bipolar disorder, current episode manic severe with psychotic features (principal); F41.9 Anxiety disorder, unspecified; K21.9 Gastro-esophageal reflux disease without esophagitis; J44.9 Chronic obstructive pulmonary disease, unspecified; F17.210 Nicotine dependence, cigarettes, uncomplicated; E66.9 Obesity, unspecified; Z68.41 Body mass index [BMI] 40.0-44.9, adult; Z88.8 Allergy status to other drugs, medicaments and biological substances; Z20.822 Contact with and (suspected) exposure to COVID-19
CPT/HCPCS: 36415; 80047; 80053; 81003; 81025; 84132; 84443; 85014; 85025; 86592; 99285; A9270; G0378; G0480; Q3014; U0004

== ENCOUNTER 2021-06-19 12:40 | Emergency (ER) | payer OTHER ==
[~2021-06-19] VITALS: Ht 170.2 cm; Wt 99.8 kg
[~2021-06-19 12:40] MED LIST changes: +BIOTIN1 MG PO; +BUMETANIDE2 M3 PO; +Colace100 MG PO; +K-Dur20 MEQ PO; +LORA.5 PO; +SPIR25 PO
[2021-06-19 14:05] LABS: Source, Urine Clean Catch
[2021-06-19 14:25] LABS: BASOPHILS ABSOLUTE AUTO 0.07 K/mm3 (0.00-0.23); BASOPHILS PERCENT AUTO 1 % (0-2); EOSINOPHILS ABSOLUTE AUTO 0.06 K/mm3 (0.00-0.68); EOSINOPHILS PERCENT AUTO 1 % (0-6); Hematocrit 41.6 % (33.0-51.0); Hemoglobin 13.9 g/dL (11.5-16.0); IMMATURE GRAN ABSOLUTE AUTO 0.03 K/mm3 (0.00-0.10); IMMATURE GRAN PERCENT AUTO 0 % (0-1); LYMPHOCYTES ABSOLUTE AUTO 3.33 K/mm3 (0.84-5.20); LYMPHOCYTES PERCENT AUTO 38 % (21-46); MONOCYTES ABSOLUTE AUTO 0.53 K/mm3 (0.16-1.47); MONOCYTES PERCENT AUTO 6 % (4-13); Mean Corpuscular HGB 30.6 pg (26.0-34.0); Mean Corpuscular HGB Conc 33.4 g/dL (31.5-36.5); Mean Corpuscular Volume 92 fL (80-100); Mean Platelet Volume 10.8 fL (9.1-12.4); NEUTROPHILS ABSOLUTE AUTO 4.79 K/mm3 (1.96-9.15); NEUTROPHILS PERCENT AUTO 54 % (41-73); Platelet Count 330 K/mm3 (150-400); RDW Coefficient Variation 13.2 % (11.7-14.2); RDW Standard Deviation 44.8 fL (35.1-46.3); Red Blood Cell Count 4.54 M/mm3 (3.80-5.20); White Blood Cell Count 8.81 K/mm3 (4.00-11.30)
[2021-06-19 14:31] LABS: Appearance, Urine Cloudy (Clear); Bilirubin, Urine Neg (Neg); Blood, Urine Neg (Neg); Color, Urine Yellow (P-Yellow); Glucose Qualitative, Urine Neg (Neg); Ketones, Urine Neg (Neg); Leukocyte Esterase, Urine Neg (Neg); Nitrite, Urine Neg (Neg); Protein, Urine 1+ (Neg); Urobilinogen, Urine NORM (Normal)
[2021-06-19 14:44] LABS: Alanine Aminotransfer (ALT/SGP 46 U/L (12-78); Albumin, Blood 4.2 g/dL (3.4-5.0); Albumin/Globulin Ratio 0.9 (0.8-1.8); Alk Phos 119 U/L (50-136); Anion Gap 6 mmol/L (6-16); Aspartate Aminotrans (AST/SGOT 24 U/L (12-37); Bilirubin, Total 0.3 mg/dL (0.1-1.0); Blood Urea Nitrogen 13 mg/dL (8-24); Bun/Creatinine Ratio 14.4 (12.0-20.0); CO2, Blood 28 mmol/L (21-32); Calcium, Blood 9.5 mg/dL (8.5-10.1); Chloride, Blood 103 mmol/L (98-108); Creatinine, Blood 0.91 mg/dL (0.40-1.00); Ethanol (Alcohol), Blood, Med <3 mg/dL; Globulin, Blood 4.6 g/dL (2.2-4.0); Glomerular Filtration Rate >60 (60-); Glucose, Blood 111 mg/dL (70-99); Potassium, Blood 3.4 mmol/L (3.5-5.5); Salicylate 4.1 mg/dL (2.8-20.0); Sodium, Blood 137 mmol/L (136-145); Total Protein, Blood 8.8 g/dL (6.4-8.2)
[2021-06-19 14:49] LABS: Bacteria Many /hpf; Red Blood Cells, Urine Not Seen /hpf (0-2); Squamous Epithelial Cells Many /hpf (Few); White Blood Cells, Urine 0-2 /hpf (0-5)
[2021-06-19 14:59] LABS: Acetaminophen, Random <2.0 ug/mL (10.0-30.0)
[2021-06-19 15:01] LABS: U Amphetamine Screen Not Detected; U Barbituate Screen Not Detected; U Benzodiazapine Screen Not Detected; U Buprenorphine Screen Not Detected; U Cannabinoids Screen Not Detected; U Cocaine Screen Not Detected; U Methadone Screen Not Detected; U Methamphetamine Screen Not Detected; U Opiates Screen Not Detected; U Oxycodone Screen Not Detected; U Phencyclidine Screen Not Detected; U Propoxyphene Screen Not Detected
[2021-06-19] MEDS ORDERED: QUET300 PO (15:02)
[2021-06-20] MEDS ORDERED: SEROQUEL XR300 MG PO (12:24)
== END 2021-06-19 15:14 | disposition home or self-care (01) ==
LOC: ER 12:40
PROVIDERS: Physician Assistant
DX: F41.9 Anxiety disorder, unspecified (principal); R45.1 Restlessness and agitation; F17.200 Nicotine dependence, unspecified, uncomplicated; Z88.8 Allergy status to other drugs, medicaments and biological substances; Z79.899 Other long term (current) drug therapy
CPT/HCPCS: 36415; 80053; 81001; 81025; 85025; 87086; 99284; G0480; Q3014

== ENCOUNTER 2021-09-19 16:16 | Emergency (ER) | payer OTHER ==
[~2021-09-19] VITALS: Ht 162.6 cm; Wt 92.5 kg
[~2021-09-19 16:16] MED LIST changes: +QUET300 PO; +SEROQUEL XR300 MG PO
[2021-09-19 19:18] LABS: Hematocrit 40.3 % (33.0-51.0); Hemoglobin 13.2 g/dL (11.5-16.0); Mean Corpuscular HGB 30.5 pg (26.0-34.0); Mean Corpuscular HGB Conc 32.8 g/dL (31.5-36.5); Mean Corpuscular Volume 93 fL (80-100); Mean Platelet Volume 11.5 fL (9.1-12.4); Platelet Count 249 K/mm3 (150-400); RDW Coefficient Variation 14.3 % (11.7-14.2); RDW Standard Deviation 49.2 fL (35.1-46.3); Red Blood Cell Count 4.33 M/mm3 (3.80-5.20); White Blood Cell Count 9.92 K/mm3 (4.00-11.30)
[2021-09-19 19:36] LABS: Alanine Aminotransfer (ALT/SGP 28 U/L (12-78); Albumin, Blood 3.9 g/dL (3.4-5.0); Albumin/Globulin Ratio 1.1 (0.8-1.8); Alk Phos 109 U/L (50-136); Anion Gap 6 mmol/L (6-16); Aspartate Aminotrans (AST/SGOT 16 U/L (12-37); Bilirubin, Total 0.3 mg/dL (0.1-1.0); Blood Urea Nitrogen 18 mg/dL (8-24); Bun/Creatinine Ratio 22.6 (12.0-20.0); CO2, Blood 25 mmol/L (21-32); Chloride, Blood 113 mmol/L (98-108); Globulin, Blood 3.6 g/dL (2.2-4.0); Glomerular Filtration Rate >60 (60-); Glucose, Blood 84 mg/dL (70-99); Potassium, Blood 4.3 mmol/L (3.5-5.5); Sodium, Blood 144 mmol/L (136-145); Total Protein, Blood 7.5 g/dL (6.4-8.2)
[2021-09-19 19:39] LABS: BASOPHILS PERCENT MAN 0 % (0-2); EOSINOPHILS PERCENT MAN 0 % (0-6); LYMPHOCYTES % ATYPICAL MANUAL 1 % (0-0); LYMPHOCYTES ABSOLUTE MAN 4.96 K/mm3 (0.84-5.20); LYMPHOCYTES PERCENT MAN 49 % (21-46); MONOCYTES ABSOLUTE MAN 0.49 K/mm3 (0.16-1.47); MONOCYTES PERCENT MAN 5 % (4-13); NEUTROPHILS ABSOLUTE MAN 4.46 K/mm3 (1.96-9.15); SEG NEUTROPHILS PERCENT MAN 45 % (41-73); TOTAL CELLS COUNTED 100
[2021-09-19 19:45] LABS: Ethanol (Alcohol), Blood, Med <3 mg/dL
[2021-09-19 19:48] LABS: Acetaminophen, Random <2.0 ug/mL (10.0-30.0)
[2021-09-19 19:53] LABS: Source, Urine Clean Catch
[2021-09-19 19:58] LABS: Appearance, Urine Clear (Clear); Bilirubin, Urine Neg (Neg); Blood, Urine Neg (Neg); Glucose Qualitative, Urine Neg (Neg); Ketones, Urine Neg (Neg); Leukocyte Esterase, Urine Neg (Neg); Nitrite, Urine Neg (Neg); Protein, Urine Neg (Neg); Specific Gravity, Urine 1.015 (1.003-1.022); Urobilinogen, Urine NORM (Normal)
[2021-09-19 20:07] LABS: Color, Urine Pale Yellow (P-Yellow)
[2021-09-19 20:18] LABS: U Amphetamine Screen Not Detected; U Barbituate Screen Not Detected; U Benzodiazapine Screen Not Detected; U Cannabinoids Screen Not Detected; U Cocaine Screen Not Detected; U Methadone Screen Not Detected; U Methamphetamine Screen Not Detected; U Opiates Screen Not Detected; U Phencyclidine Screen Not Detected
[2021-09-19 20:19] LABS: U Buprenorphine Screen Not Detected; U Oxycodone Screen Not Detected; U Propoxyphene Screen Not Detected
== END 2021-09-19 22:26 | disposition home or self-care (01) ==
LOC: ER 16:16
PROVIDERS: Emergency Medicine
DX: T76.21XA Adult sexual abuse, suspected, initial encounter (principal); F30.9 Manic episode, unspecified; Z88.8 Allergy status to other drugs, medicaments and biological substances; Z79.899 Other long term (current) drug therapy; F17.210 Nicotine dependence, cigarettes, uncomplicated
CPT/HCPCS: 36415; 80053; 81003; 81025; 85025; A9270; G0480

== ENCOUNTER 2021-10-20 20:30 | Observation (INO) | payer OTHER ==
[~2021-10-20] VITALS: Ht 162.6 cm; Wt 99.7 kg
[2021-10-20 21:51] LABS: BASOPHILS ABSOLUTE AUTO 0.05 K/mm3 (0.00-0.23); BASOPHILS PERCENT AUTO 1 % (0-2); EOSINOPHILS ABSOLUTE AUTO 0.04 K/mm3 (0.00-0.68); EOSINOPHILS PERCENT AUTO 0 % (0-6); Hematocrit 38.7 % (33.0-51.0); Hemoglobin 12.7 g/dL (11.5-16.0); IMMATURE GRAN ABSOLUTE AUTO 0.04 K/mm3 (0.00-0.10); IMMATURE GRAN PERCENT AUTO 0 % (0-1); LYMPHOCYTES ABSOLUTE AUTO 2.72 K/mm3 (0.84-5.20); LYMPHOCYTES PERCENT AUTO 28 % (21-46); MONOCYTES ABSOLUTE AUTO 0.83 K/mm3 (0.16-1.47); MONOCYTES PERCENT AUTO 9 % (4-13); Mean Corpuscular HGB 29.5 pg (26.0-34.0); Mean Corpuscular HGB Conc 32.8 g/dL (31.5-36.5); Mean Corpuscular Volume 90 fL (80-100); Mean Platelet Volume 11.3 fL (9.1-12.4); NEUTROPHILS ABSOLUTE AUTO 6.06 K/mm3 (1.96-9.15); NEUTROPHILS PERCENT AUTO 62 % (41-73); Platelet Count 297 K/mm3 (150-400); RDW Coefficient Variation 13.6 % (11.7-14.2); RDW Standard Deviation 44.9 fL (35.1-46.3); White Blood Cell Count 9.74 K/mm3 (4.00-11.30)
[2021-10-20 22:32] LABS: Alanine Aminotransfer (ALT/SGP 38 U/L (12-78); Albumin, Blood 3.7 g/dL (3.4-5.0); Albumin/Globulin Ratio 0.9 (0.8-1.8); Alk Phos 98 U/L (50-136); Anion Gap 7 mmol/L (6-16); Aspartate Aminotrans (AST/SGOT 18 U/L (12-37); Bilirubin, Total 0.4 mg/dL (0.1-1.0); Blood Urea Nitrogen 14 mg/dL (8-24); Bun/Creatinine Ratio 16.5 (12.0-20.0); CO2, Blood 24 mmol/L (21-32); Calcium, Blood 9.5 mg/dL (8.5-10.1); Chloride, Blood 108 mmol/L (98-108); Creatinine, Blood 0.85 mg/dL (0.40-1.00); Ethanol (Alcohol), Blood, Med <3 mg/dL; Glomerular Filtration Rate >60 (60-); Glucose, Blood 95 mg/dL (70-99); Potassium, Blood 3.4 mmol/L (3.5-5.5); Salicylate 3.7 mg/dL (2.8-20.0); Sodium, Blood 139 mmol/L (136-145); Total Protein, Blood 7.7 g/dL (6.4-8.2)
[2021-10-20 22:34] LABS: Acetaminophen, Random <2.0 ug/mL (10.0-30.0)
[2021-10-20 22:37] LABS: Source, Urine Clean Catch
[2021-10-20 22:40] LABS: Bilirubin, Urine Neg (Neg); Blood, Urine Neg (Neg); Glucose Qualitative, Urine Neg (Neg); Ketones, Urine Neg (Neg); Leukocyte Esterase, Urine 1+ (Neg); Nitrite, Urine Neg (Neg); Protein, Urine 1+ (Neg); Urobilinogen, Urine 1+ (Normal)
[2021-10-20 22:50] LABS: Appearance, Urine Hazy (Clear); Color, Urine Yellow (P-Yellow)
[2021-10-20 22:51] LABS: Amorphous Light (0-Heavy); Bacteria Mod /hpf; Mucus Mod (0-Heavy); Red Blood Cells, Urine Not Seen /hpf (0-2); Squamous Epithelial Cells Few /hpf (Few); White Blood Cells, Urine 0-2 /hpf (0-5)
[2021-10-20 22:52] LABS: U Amphetamine Screen Not Detected; U Barbituate Screen Not Detected; U Benzodiazapine Screen Not Detected; U Buprenorphine Screen Not Detected; U Cannabinoids Screen Not Detected; U Cocaine Screen Not Detected; U Methadone Screen Not Detected; U Methamphetamine Screen Not Detected; U Opiates Screen Not Detected; U Oxycodone Screen Not Detected; U Phencyclidine Screen Not Detected; U Propoxyphene Screen Not Detected
[2021-10-21 00:15] LABS: Influenza A, PCR NEGATIVE (NEGATIVE); Influenza B, PCR NEGATIVE (NEGATIVE); Resp Syncytial Virus, PCR NEGATIVE (NEGATIVE); SARS-Cov-2 (COVID-19) PCR, MMC NEGATIVE (NEGATIVE)
== END 2021-10-23 08:30 ==
LOC: ER 20:30 → EOR 20:31
PROVIDERS: Physician Assistant; ADMIT Emergency Medicine
DX: F31.9 Bipolar disorder, unspecified (principal); F17.210 Nicotine dependence, cigarettes, uncomplicated; Z88.8 Allergy status to other drugs, medicaments and biological substances; Z20.822 Contact with and (suspected) exposure to COVID-19
CPT/HCPCS: 0241U; 36415; 80053; 81001; 81025; 85025; 87086; 99285; A9270; G0378; G0480

== ENCOUNTER 2021-11-07 01:33 | Observation (INO) | payer OTHER ==
[~2021-11-07] VITALS: Ht 162.6 cm; Wt 104.3 kg
[2021-11-07 02:33] LABS: BASOPHILS ABSOLUTE AUTO 0.05 K/mm3 (0.00-0.23); BASOPHILS PERCENT AUTO 1 % (0-2); EOSINOPHILS ABSOLUTE AUTO 0.09 K/mm3 (0.00-0.68); EOSINOPHILS PERCENT AUTO 1 % (0-6); Hematocrit 41.1 % (33.0-51.0); Hemoglobin 13.7 g/dL (11.5-16.0); IMMATURE GRAN ABSOLUTE AUTO 0.02 K/mm3 (0.00-0.10); IMMATURE GRAN PERCENT AUTO 0 % (0-1); LYMPHOCYTES ABSOLUTE AUTO 3.75 K/mm3 (0.84-5.20); LYMPHOCYTES PERCENT AUTO 37 % (21-46); MONOCYTES PERCENT AUTO 8 % (4-13); Mean Corpuscular HGB 29.8 pg (26.0-34.0); Mean Corpuscular HGB Conc 33.3 g/dL (31.5-36.5); Mean Corpuscular Volume 89 fL (80-100); Mean Platelet Volume 10.8 fL (9.1-12.4); NEUTROPHILS ABSOLUTE AUTO 5.47 K/mm3 (1.96-9.15); NEUTROPHILS PERCENT AUTO 54 % (41-73); Platelet Count 304 K/mm3 (150-400); RDW Coefficient Variation 14.2 % (11.7-14.2); RDW Standard Deviation 46.5 fL (35.1-46.3); White Blood Cell Count 10.18 K/mm3 (4.00-11.30)
[2021-11-07 02:38] LABS: U Amphetamine Screen Not Detected; U Barbituate Screen Not Detected; U Benzodiazapine Screen Not Detected; U Buprenorphine Screen Not Detected; U Cannabinoids Screen Not Detected; U Cocaine Screen Not Detected; U Methadone Screen Not Detected; U Methamphetamine Screen Not Detected; U Opiates Screen Not Detected; U Oxycodone Screen Not Detected; U Phencyclidine Screen Not Detected; U Propoxyphene Screen Not Detected
[2021-11-07 02:51] LABS: Alanine Aminotransfer (ALT/SGP 31 U/L (12-78); Albumin, Blood 3.9 g/dL (3.4-5.0); Albumin/Globulin Ratio 1.1 (0.8-1.8); Alk Phos 88 U/L (50-136); Anion Gap 6 mmol/L (6-16); Aspartate Aminotrans (AST/SGOT 19 U/L (12-37); Bilirubin, Total 0.3 mg/dL (0.1-1.0); Blood Urea Nitrogen 11 mg/dL (8-24); Bun/Creatinine Ratio 16.5 (12.0-20.0); CO2, Blood 25 mmol/L (21-32); Calcium, Blood 9.5 mg/dL (8.5-10.1); Chloride, Blood 111 mmol/L (98-108); Creatinine, Blood 0.67 mg/dL (0.40-1.00); Globulin, Blood 3.6 g/dL (2.2-4.0); Glomerular Filtration Rate >60 (60-); Glucose, Blood 106 mg/dL (70-99); Potassium, Blood 3.5 mmol/L (3.5-5.5); Sodium, Blood 142 mmol/L (136-145); Total Protein, Blood 7.5 g/dL (6.4-8.2)
[2021-11-07 03:24] LABS: Influenza A, PCR NEGATIVE (NEGATIVE); Influenza B, PCR NEGATIVE (NEGATIVE); Resp Syncytial Virus, PCR NEGATIVE (NEGATIVE); SARS-Cov-2 (COVID-19) PCR, MMC NEGATIVE (NEGATIVE)
[2021-11-07 17:50] LABS: Source, Urine Voided
[2021-11-07 17:53] LABS: Appearance, Urine Cloudy (Clear); Bilirubin, Urine Neg (Neg); Blood, Urine 1+ (Neg); Color, Urine Yellow (P-Yellow); Glucose Qualitative, Urine Neg (Neg); Ketones, Urine Neg (Neg); Leukocyte Esterase, Urine 1+ (Neg); Nitrite, Urine Neg (Neg); Protein, Urine 1+ (Neg); Specific Gravity, Urine 1.025 (1.003-1.022); Urobilinogen, Urine 1+ (Normal)
[2021-11-07 18:02] LABS: Amorphous Heavy (0-Heavy); Bacteria Many /hpf; Squamous Epithelial Cells Few /hpf (Few)
[2021-11-07 18:03] LABS: Calcium Oxalate Crystals Few /hpf
== END 2021-11-12 12:17 | disposition home or self-care (01) ==
LOC: ER 01:33 → EOR 01:34
PROVIDERS: Emergency Medicine; ADMIT Emergency Medicine
DX: F31.2 Bipolar disorder, current episode manic severe with psychotic features (principal); F17.210 Nicotine dependence, cigarettes, uncomplicated; Z20.822 Contact with and (suspected) exposure to COVID-19
CPT/HCPCS: 0241U; 80053; 81001; 84703; 85025; 87086; 96372; 99285-25; A9270; G0378; Q3014

== ENCOUNTER 2022-02-11 04:08 | Emergency (ER) | payer OTHER ==
[~2022-02-11] VITALS: Ht 162.6 cm; Wt 90.7 kg
[2022-02-11] MEDS ORDERED: cholecalciferol (vit (04:17)
[2022-02-11] MEDS ORDERED: B-121000 MC7 PO (04:17)
[2022-02-11] MEDS ORDERED: QUETIAPINE FUM PO (04:18)
[2022-02-11] MEDS ORDERED: MELA3 PO (07:34)
[2022-02-11] MEDS ORDERED: Atarax10 MG PO (07:34)
== END 2022-02-11 07:47 | disposition home or self-care (01) ==
LOC: ER 04:08
DX: G47.00 Insomnia, unspecified (principal); F32.9 Major depressive disorder, single episode, unspecified; F20.9 Schizophrenia, unspecified; Z79.899 Other long term (current) drug therapy; Z88.8 Allergy status to other drugs, medicaments and biological substances
CPT/HCPCS: 99283

== ENCOUNTER 2022-02-24 08:35 | Observation (INO) | payer OTHER ==
[~2022-02-24] VITALS: Ht 162.6 cm; Wt 90.7 kg
[~2022-02-24 08:35] MED LIST changes: +Atarax10 MG PO; +B-121000 MC7 PO; +MELA3 PO; +QUETIAPINE FUM PO; +cholecalciferol (vit
[2022-02-24 09:43] LABS: Source, Urine Clean Catch
[2022-02-24 09:46] LABS: Appearance, Urine Clear (Clear); Bilirubin, Urine Neg (Neg); Blood, Urine Neg (Neg); Color, Urine Yellow (P-Yellow); Glucose Qualitative, Urine Neg (Neg); Ketones, Urine Neg (Neg); Leukocyte Esterase, Urine Neg (Neg); Nitrite, Urine Neg (Neg); Protein, Urine Neg (Neg); Urobilinogen, Urine NORM (Normal)
[2022-02-24 09:47] LABS: BASOPHILS ABSOLUTE AUTO 0.06 K/mm3 (0.00-0.23); BASOPHILS PERCENT AUTO 1 % (0-2); EOSINOPHILS ABSOLUTE AUTO 0.01 K/mm3 (0.00-0.68); EOSINOPHILS PERCENT AUTO 0 % (0-6); Hemoglobin 15.3 g/dL (11.5-16.0); IMMATURE GRAN ABSOLUTE AUTO 0.07 K/mm3 (0.00-0.10); IMMATURE GRAN PERCENT AUTO 1 % (0-1); LYMPHOCYTES ABSOLUTE AUTO 2.32 K/mm3 (0.84-5.20); LYMPHOCYTES PERCENT AUTO 19 % (21-46); MONOCYTES ABSOLUTE AUTO 0.49 K/mm3 (0.16-1.47); MONOCYTES PERCENT AUTO 4 % (4-13); Mean Corpuscular HGB 31.4 pg (26.0-34.0); Mean Corpuscular Volume 92 fL (80-100); Mean Platelet Volume 11.2 fL (9.1-12.4); NEUTROPHILS ABSOLUTE AUTO 9.03 K/mm3 (1.96-9.15); NEUTROPHILS PERCENT AUTO 75 % (41-73); Platelet Count 292 K/mm3 (150-400); RDW Coefficient Variation 14.4 % (11.7-14.2); RDW Standard Deviation 49.5 fL (35.1-46.3); Red Blood Cell Count 4.87 M/mm3 (3.80-5.20); White Blood Cell Count 11.98 K/mm3 (4.00-11.30)
[2022-02-24 10:05] LABS: U Amphetamine Screen Not Detected; U Barbituate Screen Not Detected; U Benzodiazapine Screen Not Detected; U Buprenorphine Screen Not Detected; U Cannabinoids Screen Not Detected; U Cocaine Screen Not Detected; U Methadone Screen Not Detected; U Methamphetamine Screen Not Detected; U Opiates Screen Not Detected; U Oxycodone Screen Not Detected; U Phencyclidine Screen Not Detected; U Propoxyphene Screen Not Detected
[2022-02-24 10:33] LABS: Acetaminophen, Random <2.0 ug/mL (10.0-30.0); Ethanol (Alcohol), Blood, Med <3 mg/dL; Salicylate 6.2 mg/dL (2.8-20.0)
[2022-02-24 10:59] LABS: Alanine Aminotransfer (ALT/SGP 25 U/L (12-78); Albumin, Blood 4.6 g/dL (3.4-5.0); Albumin/Globulin Ratio 1.1 (0.8-1.8); Alk Phos 102 U/L (50-136); Anion Gap 9 mmol/L (6-16); Aspartate Aminotrans (AST/SGOT 9 U/L (12-37); Bilirubin, Total 0.3 mg/dL (0.1-1.0); Blood Urea Nitrogen 18 mg/dL (8-24); Bun/Creatinine Ratio 24.9 (12.0-20.0); CO2, Blood 25 mmol/L (21-32); Calcium, Blood 10.3 mg/dL (8.5-10.1); Chloride, Blood 103 mmol/L (98-108); Creatinine, Blood 0.72 mg/dL (0.40-1.00); Globulin, Blood 4.1 g/dL (2.2-4.0); Glomerular Filtration Rate 101 (60-); Glucose, Blood 125 mg/dL (70-99); Potassium, Blood 4.1 mmol/L (3.5-5.5); Sodium, Blood 137 mmol/L (136-145); Total Protein, Blood 8.7 g/dL (6.4-8.2)
[2022-02-24 11:11] LABS: Influenza A, PCR NEGATIVE (NEGATIVE); Influenza B, PCR NEGATIVE (NEGATIVE); Resp Syncytial Virus, PCR NEGATIVE (NEGATIVE); SARS-Cov-2 (COVID-19) PCR, MMC NEGATIVE (NEGATIVE)
[2022-02-24] MEDS ORDERED: [UNRECOGNIZED DRUG - CODE] PO (20:36)
[2022-02-25] MEDS ORDERED: HYDPAM25 PO (09:55)
== END 2022-02-25 10:12 | disposition home or self-care (01) ==
LOC: ER 08:35 → EOR 08:36
PROVIDERS: ADMIT Emergency Medicine
DX: F31.4 Bipolar disorder, current episode depressed, severe, without psychotic features (principal); F17.210 Nicotine dependence, cigarettes, uncomplicated; Z20.822 Contact with and (suspected) exposure to COVID-19
CPT/HCPCS: 0241U; 36415; 80053; 81003; 81025; 85025; 86592; 93005; 93010; 99285-25; A9270; G0378; G0480; Q3014

== ENCOUNTER → 2022-04-29 | Outpatient (CLI) | payer OTHER ==
[~2022-04-29] MED LIST changes: +[UNRECOGNIZED DRUG - CODE] PO
[2022-04-29 17:09] LABS: BASOPHILS ABSOLUTE AUTO 0.03 K/mm3 (0.00-0.23); BASOPHILS PERCENT AUTO 0 % (0-2); EOSINOPHILS ABSOLUTE AUTO 0.06 K/mm3 (0.00-0.68); EOSINOPHILS PERCENT AUTO 1 % (0-6); Hematocrit 39.9 % (33.0-51.0); Hemoglobin 13.4 g/dL (11.5-16.0); IMMATURE GRAN ABSOLUTE AUTO 0.04 K/mm3 (0.00-0.10); IMMATURE GRAN PERCENT AUTO 0 % (0-1); LYMPHOCYTES ABSOLUTE AUTO 3.02 K/mm3 (0.84-5.20); LYMPHOCYTES PERCENT AUTO 26 % (21-46); MONOCYTES ABSOLUTE AUTO 1.04 K/mm3 (0.16-1.47); MONOCYTES PERCENT AUTO 9 % (4-13); Mean Corpuscular HGB 31.3 pg (26.0-34.0); Mean Corpuscular HGB Conc 33.6 g/dL (31.5-36.5); Mean Corpuscular Volume 93 fL (80-100); Mean Platelet Volume 9.7 fL (9.1-12.4); NEUTROPHILS ABSOLUTE AUTO 7.54 K/mm3 (1.96-9.15); NEUTROPHILS PERCENT AUTO 64 % (41-73); Platelet Count 284 K/mm3 (150-400); RDW Coefficient Variation 14.1 % (11.7-14.2); RDW Standard Deviation 48.9 fL (35.1-46.3); Red Blood Cell Count 4.28 M/mm3 (3.80-5.20); White Blood Cell Count 11.73 K/mm3 (4.00-11.30)
[2022-04-29 17:13] LABS: Bun/Creatinine Ratio 14.8 (12.0-20.0); Calcium, Blood 9.3 mg/dL (8.5-10.1); Creatinine, Blood 1.15 mg/dL (0.40-1.00); Potassium, Blood 4.3 mmol/L (3.5-5.5)
== END | disposition home or self-care (01) ==
LOC: LAB 17:01 → LAB SHORT 17:01
PROVIDERS: Physician Assistant Surgical
DX: K04.7 Periapical abscess without sinus (principal)
CPT/HCPCS: 80048; 85025

== ENCOUNTER → 2025-04-12 | Outpatient (CLI) | payer OTHER ==
[2025-04-17 17:35] LABS: HPV HIGH RISK BY TMA Not Detected; HPV SOURCE Cervical
== END | disposition home or self-care (01) ==
LOC: LAB 10:30 → LAB SHORT 10:30
PROVIDERS: Nurse Practitioner Family
DX: Z12.4 Encounter for screening for malignant neoplasm of cervix (principal)
CPT/HCPCS: 87624; G0123